=== PATIENT | male | born 1930 | race Caucasian/White ===

== ENCOUNTER 2016-11-13 11:03 | Inpatient (IN) | payer OTHER ==
[~2016-11-13] VITALS: Ht 175.3 cm; Wt 84.4 kg
[2016-11-13] MEDS ORDERED: ACETAMINOPHEN 500 MG TAB PO STA (11:45)
--- NOTE | 2016-11-13 11:52 | EMERGENCY ROOM VISIT NOTE ---
History Report prepared by Renu: Luna Herron Under the Supervision of: Dr. Marcos Monge M.D. First contact with patient: 11:38 Chief Complaint: HEAD PAIN Stated Complaint: PAIN GOING UP TO HEAD AND NECK History of Present Illness The patient is an 86 year old male who presents to the Emergency Room with complaints of persistent head pain for the past several days. He currently rates his discomfort as a 7/10 in severity. The patient states that he first noticed the pain radiating from the center of his back up through his head. He states that now he notices the pain more to the right side of his head. The patient states that he has noticed the pain radiating down his anterior neck, but denies any chest pain. He denies any diaphoresis, shortness of breath, nausea, recent fall, trauma. The patient states that he had recent dental work done, but denies any current jaw pain. He states that raising his head, and any movement of his head and neck worsens his discomfort. The patient states that he has taken Ibuprofen for his pain. The patient's states that the patient sleeps with his head on three pillows at night. Source of History: patient, spouse/significant other () Onset: past several days Position: head Symptom Intensity: 7/10 Timing: other (persistent) Modifying Factors (Worsening): movement (head and neck) Associated Symptoms: + neck pain, No SOB, No chest pain, No diaphoresis, No nausea Review of Systems See HPI for pertinent positives & negatives. A total of 10 systems reviewed and were otherwise negative. Past Medical & Surgical Medical Problems: (1) CAD (coronary artery disease) (2) CKD (chronic kidney disease) stage 3, GFR 30-59 ml/min (3) Dyslipidemia (4) HTN (hypertension) (5) Retinal hemorrhage Surgical Problems: (1) H/O heart artery stent No active medical problems stated. Family History Cancer Social History Smoking Status: Never Smoker Marital Status: Housing Status: lives with significant other Occupation Status: retired Current/Historical Medications Scheduled Allopurinol (Allopurinol), 100 MG PO BID Aspirin (Aspirin), 162 MG PO DAILY Coenzyme Q10 (Ubidecarenone) (Coq-10), 30 MG PO DAILY Fish Oil ([place]-3), 3 CAP PO BID Metoprolol Succ (Toprol Xl) (Toprol-Xl), 12.5 MG PO BID Misc Natural Products (Lutein Vision Blend), 1 CAP PO DAILY Simvastatin (Zocor), 20 MG PO HS Scheduled PRN Acetaminophen (Tylenol), 1,000 MG PO HS PRN for Pain Tramadol (Ultram), 50 MG PO HS PRN for Pain Allergies Coded Allergies: No Known Allergies (Verified , 06/25/12) Physical Exam Vital Signs Date Time Temp Pulse Resp B/P Pulse Ox O2 Delivery O2 Flow Rate FiO2 11/13/16 14:05 Room Air 11/13/16 13:00 63 20 138/96 94 Room Air 11/13/16 11:07 36.5 82 18 130/91 93 Room Air Physical Exam GENERAL: Patient is in no acute distress. HEENT: No acute trauma, normocephalic atraumatic, mucous membranes moist, no nasal congestion, no scleral icterus. NECK: Tender to posterior neck muscles, especially where they insert on scalp. No adenopathy or cellulitis. Movement worsens pain. Posterior c-spine has no jim stepoff. Carotid upstrokes are equal bilaterally. LUNGS: Clear to auscultation bilaterally, no wheeze, no rhonchi, breath sounds equal. HEART: Without murmurs gallops or rubs, regular rate and rhythm. ABDOMEN: Soft, nontender, bowel sounds positive, no hernias, no peritonitis. EXTREMITIES: No cyanosis or edema, full range of motion of all the joints without pain or difficulty, no signs for acute trauma. NEUROLOGIC: Oriented x 3, no acute motor or sensory deficits, no focal weakness. SKIN: No rash, no jaundice, no diaphoresis. Medical Decision & Procedures ER Provider Diagnostic Interpretation: X ray results and stated below per my interpretation and radiologist interpretation. Other radiology results and stated below per my review and radiologist interpretation: HEAD CT NONCONTRAST CT DOSE: HISTORY: headache TECHNIQUE: Multiaxial CT images of the head were performed without the use of intravenous contrast. Automated exposure control was utilized for this study. Comparison: None. Findings: The paranasal sinuses and mastoid air cells are clear. The calvarium and skull base are intact. There is no mass, hematoma, midline shift, acute infarct. White matter hypodensity is nonspecific but suggestive of microvascular ischemic change. The ventricles and sulci demonstrate mild age-related involutional changes. Impression: No acute intracranial abnormality. Atrophy and microvascular ischemic changes. Electronically signed by: Ulisses Coughlin M.D. 11/13/2016 1:06 PM Dictated Date/Time: 11/13/2016 1:[address] DOSE: 1278.82 mGy.cm HISTORY: neck pain TECHNIQUE: Multiaxial CT images of the cervical spine were performed and reformatted in the sagittal and coronal plane without the use of contrast. COMPARISON: None. FINDINGS: There is a 2.1 x 2.3 cm destructive mass centered within the left anterior base of the C2 vertebral body. This invades into the left vertebral canal. This does not extend to the posterior cortex. This results in a 8 pathologic fracture within the central aspect of the C2 inferior endplate which demonstrates mild depression. No associated retropulsion. The C1-C2 interval is intact. There is fusion of the C3-C4 vertebral bodies and facets. Moderate to severe degenerative disc disease within the mid to lower cervical spine. Moderate central canal narrowing at the C4-C5 level due to a broad-based posterior disc ossified complex. There is also a second destructive mass involving the left thyroid cartilage which measures 1.5 cm. However, the airway remains patent. IMPRESSION: 1. A 2.3 x 2.1 cm destructive mass within the left anterior base of the C2 vertebral body as described above. This results in a mild inferior endplate compression fracture at C2. No associated retropulsion. This is highly suspicious for a metastatic lesion. 2. There is a second 1.5 cm destructive mass centered within the left thyroid cartilage. No airway compromise. Electronically signed by: Ulisses Coughlin M.D. 11/13/2016 1:14 PM Dictated Date/Time: 11/13/2016 1:07 PM CHEST ONE VIEW PORTABLE HISTORY: Lytic lesion cervical spine. Possible cancer. COMPARISON: None. FINDINGS: No pneumothorax. Bibasilar interstitial thickening and a few bibasilar linear densities which favor subsegmental atelectasis or a the heart is top normal in size. There is a 3.1 cm focal masslike opacity within the left midlung zone. No pleural effusions. IMPRESSION: 1. A 3.1 cm masslike opacity within the left midlung zone. This is concerning for a malignancy. 2. Bibasilar linear densities favor scarring or atelectasis. Electronically signed by: Ulisses Coughlin M.D. 11/13/2016 1:56 PM Dictated Date/Time: 11/13/2016 1:54 PM Laboratory Results 11/13/16 13:30 11/13/16 13:30 Test 11/13/16 13:30 Red Blood Count 4.91 M/uL (4.7-6.1) Mean Corpuscular Volume 88.8 fL (80-100) Mean Corpuscular Hemoglobin 31.0 pg (25-34) Mean Corpuscular Hemoglobin Concent 34.9 g/dl (32-36) RDW Standard Deviation 45.8 fL (36.4-46.3) RDW Coefficient of Variation 14.1 % (11.5-14.5) Mean Platelet Volume 9.4 fL (7.4-10.4) Anion Gap 5.0 mmol/L (3-11) Est Creatinine Clear Calc Drug Dose 48.2 ml/min Estimated GFR () 70.1 Estimated GFR (Non- 60.5 BUN/Creatinine Ratio 10.9 (10-20) Calcium Level 8.8 mg/dl (8.5-10.1) Total Bilirubin 0.6 mg/dl (0.2-1) Aspartate Amino Transf (AST/SGOT) 24 U/L (15-37) Alanine Aminotransferase (ALT/SGPT) 20 U/L (12-78) Alkaline Phosphatase 112 U/L (45-117) Total Protein 7.7 gm/dl (6.4-8.2) Albumin 3.3 gm/dl (3.4-5.0) Globulin 4.4 gm/dl (2.5-4.0) Albumin/Globulin Ratio 0.7 (0.9-2) Laboratory results reviewed by me. Medications Administered Medications (Trade) Dose Ordered Sig/Letty Route Start Time Stop Time Status Last Admin Dose Admin Acetaminophen (Tylenol Tab) 1,000 mg NOW STAT PO 11/13/16 11:45 11/13/16 11:47 DC 11/13/16 11:55 1,000 MG ECG Indication: other (head pain) Rate (beats per minute): 68 Rhythm: normal sinus Findings: no acute ischemic change, no ectopy ED Course 1140: The patient was evaluated in room C8. A complete history and physical exam was performed. 1145: Ordered Tylenol Tab 1000 mg PO. 1328: I discussed the patient's case with Darshana Jaeger. He states that the patient should be placed in a stiff collar and should be evaluated under a hospitalist for further treatment. 1334: I reevaluated the patient at this time and he is resting comfortably. I discussed the CT results with him and I discussed the treatment plan. He verbalized complete understanding and agreement. He is going to be evaluated for further treatment and is going to have additional testing done in the emergency department. 1336: I discussed the patient's case with Lou Hauser PA-C. She is going to evaluate the patient for further treatment. Medical Decision The patient is an 86 year old male who presents to the ED with complaints of head pain. Differential diagnoses considered include arthritis, nerve impingement, intracranial bleeding, cervical spine fracture, carotid dissection , VA, cellulitis. There is no leukocytosis or concerning anemia. No significant electrolyte abnormality, kidney failure or hepatitis. Chest film shows a possible mass in the left lung, no pneumonia. Brain CT shows no acute bleed or mass effect. C- spine CT shows a pathologic C2 fracture. The patient was placed in a [place] J collar. He did receive oral Tylenol for pain. I talked to the patient and his family about the findings. His fracture of the C-spine is a pathologic fracture, likely from a metastatic lesion. He requires further care in the hospital. He needs a workup for malignancy. I did speak to the on-call spinal surgeon about the spinal fracture, the c-collar was all that was recommended for now. Consults Time Called: 1323 Consulting Physician: Darshana Jaeger Returned Call: 1328 I discussed the patient's case with Darshana Jaeger. He states that the patient should be placed in a stiff collar and should be evaluated under a hospitalist for further treatment. Additional Consults: Time Called: 1331 Consulted Physician: Lou Hauser PA-C Returned Call: 1334 Additional Comments: I discussed the patient's case with Lou Hauser PA-C. She is going to evaluate the patient for further treatment. Impression Primary Impression: C2 cervical fracture Additional Impression: Headache Scribe Attestation The scribe's documentation has been prepared under my direction and personally reviewed by me in its entirety. I confirm that the note above accurately reflects all work, treatment, procedures, and medical decision making performed by me. Departure Information Dispostion Being Evaluated By Hospitalist Referrals No Doctor, Assigned (PCP) Problem Qualifiers
[2016-11-13] MEDS ORDERED: LPR25 PO (12:18)
[2016-11-13] MEDS ORDERED: ALLO100T PO (12:18)
[2016-11-13] MEDS ORDERED: ASPI-461 PO (12:18)
[2016-11-13] MEDS ORDERED: FOCUS PO (12:18)
[2016-11-13] MEDS ORDERED: SIMV20TA2 PO (12:18)
[2016-11-13] MEDS ORDERED: OMEG10007 PO (12:18)
--- NOTE | 2016-11-13 13:08 | DIAGNOSTIC IMAGING REPORT ---
HEAD CT NONCONTRAST CT DOSE: HISTORY: headache TECHNIQUE: Multiaxial CT images of the head were performed without the use of intravenous contrast. Automated exposure control was utilized for this study. Comparison: None. Findings: The paranasal sinuses and mastoid air cells are clear. The calvarium and skull base are intact. There is no mass, hematoma, midline shift, acute infarct. White matter hypodensity is nonspecific but suggestive of microvascular ischemic change. The ventricles and sulci demonstrate mild age-related involutional changes. Impression: No acute intracranial abnormality. Atrophy and microvascular ischemic changes. Electronically signed by: Ulisses Coughlin M.D. 11/13/2016 1:06 PM Dictated Date/Time: 11/13/2016 1:03 PM
--- NOTE | 2016-11-13 13:15 | DIAGNOSTIC IMAGING REPORT ---
CERVICAL SPINE CT CT DOSE: 1278.82 mGy.cm HISTORY: neck pain TECHNIQUE: Multiaxial CT images of the cervical spine were performed and reformatted in the sagittal and coronal plane without the use of contrast. COMPARISON: None. FINDINGS: There is a 2.1 x 2.3 cm destructive mass centered within the left anterior base of the C2 vertebral body. This invades into the left vertebral canal. This does not extend to the posterior cortex. This results in a 8 pathologic fracture within the central aspect of the C2 inferior endplate which demonstrates mild depression. No associated retropulsion. The C1-C2 interval is intact. There is fusion of the C3-C4 vertebral bodies and facets. Moderate to severe degenerative disc disease within the mid to lower cervical spine. Moderate central canal narrowing at the C4-C5 level due to a broad-based posterior disc ossified complex. There is also a second destructive mass involving the left thyroid cartilage which measures 1.5 cm. However, the airway remains patent. IMPRESSION: 1. A 2.3 x 2.1 cm destructive mass within the left anterior base of the C2 vertebral body as described above. This results in a mild inferior endplate compression fracture at C2. No associated retropulsion. This is highly suspicious for a metastatic lesion. 2. There is a second 1.5 cm destructive mass centered within the left thyroid cartilage. No airway compromise. Electronically signed by: Ulisses Coughlin M.D. 11/13/2016 1:14 PM Dictated Date/Time: 11/13/2016 1:07 PM
[2016-11-13 13:42] LABS: HEMATOCRIT 43.6 % (42-52); MEAN CELL VOLUME 88.8 fL (80-100); MEAN CORPUSCULAR HGB CONC 34.9 g/dl (32-36); MEAN PLATELET VOLUME 9.4 fL (7.4-10.4); PLATELET COUNT 185 K/uL (130-400); RED BLOOD COUNT 4.91 M/uL (4.7-6.1); WHITE BLOOD COUNT 8.95 K/uL (4.8-10.8)
[2016-11-13 13:57] LABS: BUN/CREATININE RATIO 10.9 (10-20); CALCIUM 8.8 mg/dl (8.5-10.1); CREATININE 1.1 mg/dl (0.60-1.40); POTASSIUM 4.4 mmol/L (3.5-5.1)
--- NOTE | 2016-11-13 13:58 | DIAGNOSTIC IMAGING REPORT ---
CHEST ONE VIEW PORTABLE HISTORY: Lytic lesion cervical spine. Possible cancer. COMPARISON: None. FINDINGS: No pneumothorax. Bibasilar interstitial thickening and a few bibasilar linear densities which favor subsegmental atelectasis or a the heart is top normal in size. There is a 3.1 cm focal masslike opacity within the left midlung zone. No pleural effusions. IMPRESSION: 1. A 3.1 cm masslike opacity within the left midlung zone. This is concerning for a malignancy. 2. Bibasilar linear densities favor scarring or atelectasis. Electronically signed by: Ulisses Coughlin M.D. 11/13/2016 1:56 PM Dictated Date/Time: 11/13/2016 1:54 PM
[2016-11-13 14:00] LABS: ALB/GLOB RATIO 0.7 (0.9-2)
[2016-11-13 14:05] VITALS: Ht 175.3 cm; Wt 84.4 kg
[2016-11-13] MEDS ORDERED: ONDANSETRON INJ 2 MG/ML 2 ML VIAL IV PRN (14:30)
[2016-11-13] MEDS ORDERED: ACETAMINOPHEN 325 MG TAB PO PRN (14:30)
[2016-11-13] MEDS ORDERED: TYLOTC500 PO (14:34)
[2016-11-13] MEDS ORDERED: COEN30CA8 PO (14:34)
[2016-11-13] MEDS ORDERED: TRAM-10 PO (14:34)
[2016-11-13] MEDS ORDERED: ALL100 PO (14:34)
[2016-11-13] MEDS ORDERED: METO25TA3 PO (14:34)
[2016-11-13] MEDS ORDERED: MISCCAP69 PO (14:34)
[2016-11-13] MEDS ORDERED: OPTIRAY 320 IV PRN (14:45)
[2016-11-13] MEDS ORDERED: TRAMADOL HCL 50 MG TAB PO PRN (14:45)
[2016-11-13 14:56] LABS: INR 1.1 (0.9-1.1); PARTIAL THROMBOPLASTIN RATIO 1.2; PROTHROMBIN TIME (PATIENT) 11.8 SECONDS (9.0-12.0)
[2016-11-13] MEDS ORDERED: OXYCODONE/ACETAMINOPHEN 5-325 TAB PO PRN (15:00)
[2016-11-13 15:50] VITALS: BP 154/84; PULSE 69; TEMP 36.8; O2SAT 95
--- NOTE | 2016-11-13 16:09 | History and Physical ---
History & Physical Date & Time of Service: Nov 13, 2016 at 14:37 Chief Complaint: Pain Going Up To Head And Neck Primary Care Physician: Frank Avila M.D. History of Present Illness Source: patient This is an 87 y/o male with PMHx of CAD s/p stent, CKD stage 3 and other problems as outlined below who presents to the ED c/o neck pain for 1-2 weeks. Pt reports that he has been experiencing pain in the posterior aspect of his neck that radiates into his head. He rates the pain at a 2/10 when laying still but the pain increases to a 10/10 with any movement. Pt has been taking Tylenol and Tramadol at home for his sxs with some relief. This morning he noticed the pain was radiating down the anterior aspect of his neck but not into his chest. Patient denies recent history of trauma or fall. He denies back or arm pain. Pt also mentions that he feels like there is a "blockage" in his rectum as he has to strain to have a BM. mentions patient has not had a good appetite. Pt was a long-time tobacco user. He has never had a colonoscopy. Pt denies recent weight loss or night sweats. Pt denies fever/chills, diaphoresis, chest pain, SOB, cough, hemoptysis, abd pain, N/V, hematochezia, melena, bladder issues, LE edema, calf pain, lightheadedness/dizziness. In the ED, vitals are stable. Labs are unremarkable. C spine CT + a mass within C2 with subsequent C2 fx. There is a 2nd mass within the L thyroid cartilage. CT head is negative. Pt is stable and will be admitted for further evaluation and treatment. 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 Surgical Problems: (1) H/O heart artery stent Permanent Comment: 2001 Status: Resolved Family History Cancer Social History Smoking Status: Former Smoker (smoked a pipe for 60 years; quit 2001) Alcohol Use: none Drug Use: none Marital Status: Housing status: lives with family Occupational Status: retired Multi-Drug Resistant Organisms History of MDRO: No Allergies Coded Allergies: No Known Allergies (Verified , 06/25/12) Home Medications Scheduled Allopurinol (Allopurinol), 100 MG PO BID Aspirin (Aspirin), 162 MG PO DAILY Coenzyme Q10 (Ubidecarenone) (Coq-10), 30 MG PO DAILY Fish Oil ([place]-3), 3 CAP PO BID Metoprolol Succ (Toprol Xl) (Toprol-Xl), 12.5 MG PO BID Misc Natural Products (Lutein Vision Blend), 1 CAP PO DAILY Simvastatin (Zocor), 20 MG PO HS Scheduled PRN Acetaminophen (Tylenol), 1,000 MG PO HS PRN for Pain Tramadol (Ultram), 50 MG PO HS PRN for Pain Review of Systems Constitutional: No chills, No fatigue, No fever, No sweats, No weakness Eyes: No worsening of vision (blind in R eye) ENT: No hearing loss Respiratory: No cough, No hemoptysis, No shortness of breath Cardiovascular: No chest pain, No claudication, No edema, No palpitations Abdomen: + constipation, No GI bleeding, No diarrhea, No nausea, No pain, No vomiting Musculoskeletal: + joint pain (neck pain), No calf pain, No swelling Genitourinary - Male: No dysuria Neurologic: No weakness Psychiatric: No depression symptoms Endocrine: No fatigue Hematologic / Lymphatic: No abnormal bleeding/bruising Integumentary: No new/changing skin lesions Physical Exam Vital Signs Date Time Temp Pulse Resp B/P Pulse Ox O2 Delivery O2 Flow Rate FiO2 11/13/16 13:00 63 20 138/96 94 Room Air 11/13/16 11:07 36.5 82 18 130/91 93 Room Air General Appearance: WD/WN, no apparent distress, + pertinent finding (Pt is laying in bed with , daughter and granddaughter at bedside) Head: normocephalic, atraumatic Eyes: normal inspection ENT: hearing grossly normal Neck: supple, + pertinent finding (C-collar in place) Respiratory/Chest: chest non-tender, lungs clear (anterior auscultation), normal breath sounds, no respiratory distress Cardiovascular: regular rate, rhythm, no edema, no murmur Abdomen/GI: normal bowel sounds, non tender, soft Back: normal inspection Extremities/Musculoskelatal: normal inspection, no calf tenderness, no pedal edema Neurologic/Psych: drafter electromechanical II-XII nml as tested, no motor/sensory deficits, alert, normal mood/affect, oriented x 3 Skin: normal color, warm/dry Diagnostics Laboratory Results Results Past 24 Hours Test 11/13/16 13:30 Range/Units White Blood Count 8.95 4.8-10.8 K/uL Red Blood Count 4.91 4.7-6.1 M/uL Hemoglobin 15.2 14.0-18.0 g/dL Hematocrit 43.6 42-52 % Mean Corpuscular Volume 88.8 80-100 fL Mean Corpuscular Hemoglobin 31.0 25-34 pg Mean Corpuscular Hemoglobin Concent 34.9 32-36 g/dl RDW Standard Deviation 45.8 36.4-46.3 fL RDW Coefficient of Variation 14.1 11.5-14.5 % Platelet Count 185 130-400 K/uL Mean Platelet Volume 9.4 7.4-10.4 fL Sodium Level 138 136-145 mmol/L Potassium Level 4.4 3.5-5.1 mmol/L Chloride Level 102 98-107 mmol/L Carbon Dioxide Level 31 21-32 mmol/L Anion Gap 5.0 3-11 mmol/L Blood Urea Nitrogen 12 7-18 mg/dl Creatinine 1.10 0.60-1.40 mg/dl Est Creatinine Clear Calc Drug Dose 48.2 ml/min Estimated GFR () 70.1 Estimated GFR (Non- 60.5 BUN/Creatinine Ratio 10.9 10-20 Random Glucose 95 70-99 mg/dl Calcium Level 8.8 8.5-10.1 mg/dl Total Bilirubin 0.6 0.2-1 mg/dl Aspartate Amino Transf (AST/SGOT) 24 15-37 U/L Alanine Aminotransferase (ALT/SGPT) 20 12-78 U/L Alkaline Phosphatase 112 45-117 U/L Total Protein 7.7 6.4-8.2 gm/dl Albumin 3.3 3.4-5.0 gm/dl Globulin 4.4 2.5-4.0 gm/dl Albumin/Globulin Ratio 0.7 0.9-[address] CERV SPINE IMPRESSION: 1. A 2.3 x 2.1 cm destructive mass within the left anterior base of the C2 vertebral body as described above. This results in a mild inferior endplate compression fracture at C2. No associated retropulsion. This is highly suspicious for a metastatic lesion. 2. There is a second 1.5 cm destructive mass centered within the left thyroid cartilage. No airway compromise. CXR IMPRESSION: 1. A 3.1 cm masslike opacity within the left midlung zone. This is concerning for a malignancy. 2. Bibasilar linear densities favor scarring or atelectasis. CT HEAD IMPRESSION: No acute intracranial abnormality. Atrophy and microvascular ischemic changes EKG EKG: NSR att 68 bpm with LAD and no acute ischemic changes; no change when compared to the EKG from 08/13/2002 Impression Assessment and Plan C2 BONE LESION HIGHLY SUSPICIOUS FOR METS WITH RESULTING C2 COMPRESSION FX pt presented with neck pain rad to the head with assoc with loss of appetite; no recent trauma or fall -admit to med/surg -CT cervical spine Impression: A 2.3 x 2.1 cm destructive mass within the left anterior base of the C2 vertebral body. This results in a mild inferior endplate compression fracture at C2. This is highly suspicious for a metastatic lesion. 2. There is a second 1.5 cm destructive mass centered within the left thyroid cartilage. No airway compromise. -CXR Impression: A 3.1 cm masslike opacity within the left midlung zone. This is concerning for a malignancy. -CT head is negative -Lidocaine patch and Percocet PRN pain -consult ortho, Dr. Silva-pending input -monitor CKD STAGE 3 -creatinine around baseline at 1.1 -continue to monitor closely and avoid nephrotoxic agents when able CORONARY ARTERY DISEASE -EKG no acute ischemic change -cont ASA, BB and statin -pt currently denies anginal sxs HTN -BP stable -cont metoprolol -monitor DYSLIPIDEMIA -cont statin DVT PROPHYLAXIS -subq Lovenox CODE STATUS -FULL CODE per discussion with patient upon admission DISPO Pt seen in collaboration with Dr. Castilol. Please see her addendum for further details. Thanks! I have seen, examined and discussed this patient with Concepcion Morales and I agree with the above note. Patient presented with neck pain, found to have a c-spine lesion and thyroid lesion concerning for metastases. CXR with lung mass. Vitals stable. PE: General- awake; alert; NAD Eyes- EOMI; no scleral icterus Neck- cervical collar in place Lungs- CTA bilaterally anteriorly Heart- RRR; no m/r/g Abdomen- soft; NTND; nBS Extremities- no c/c/e; no deformity Neuro- no focal deficits Skin- no appreciable rash or bruise Labs, imaging and EKG reviewed. C-spine lesion- Concerning for metastases. Patient in cervical collar. Ortho consulted. 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 Gentle IVF's to avoid contrast induced nephropathy. Continue patient's home medication regimen as outlined above. Advanced Directives Existing Living Will: No Existing Power of Ladler: Yes VTE Prophylaxis VTE Risk Assessment Done? Y/N: Yes Risk Level: Moderate
[2016-11-13] MEDS ORDERED: ENOXAPARIN 40 MG/0.4 ML SYR SQ SCH (18:00)
[2016-11-13] MEDS: SODIUM CHLORIDE 0.9% 1000ML 1,000 ML IV SCH (19:04)
--- NOTE | 2016-11-13 19:31 | DIAGNOSTIC IMAGING REPORT ---
CT OF THE CHEST WITH IV CONTRAST CLINICAL HISTORY: Suspicious left lung mass. COMPARISON STUDY: Chest radiograph November 13, 2016. TECHNIQUE: Following IV administration of 92 mL of Optiray-320, helical axial images of the chest were obtained. Images were viewed in the axial, sagittal and coronal planes. IV contrast was administered without complication. CT DOSE: 935.69 mGy.cm FINDINGS: Note is made of an irregular 2.8 x 2.4 cm lingular nodule. There are a few additional lingular nodules that measure up to 7 mm. A few right lower lobe nodules measure up to 6 mm. The heart is mildly enlarged. There is no pericardial effusion. There are multiple enlarged left hilar lymph nodes with a conglomerate left infrahilar mass that measures 4.5 x 2.8 cm. There is resultant severe narrowing of the left upper lobe bronchus and occlusion of the lingular bronchus. Multifocal groundglass opacity throughout the lungs are noted. There is moderate emphysema. There is no pneumothorax or pleural effusion. Note is made of suspected small lytic lesions within multiple ribs, including a 1.7 cm lesion within the lateral right fifth rib. The abdomen and pelvis will be reported separately. Note is made of a 2.9 cm lateral segment hepatic lesion and a 1.5 cm segment 8 hepatic lesion. IMPRESSION: 1. 2.8 x 2.4 cm irregular lingular nodule highly suggestive of bronchogenic adenocarcinoma. 2. Multiple pathologically enlarged left hilar lymph nodes suggestive of ruby spread of disease. Associated occlusion of the lingular bronchus, severe narrowing of the left upper lobe bronchus and narrowing of several pulmonary arteries. 3. Two hepatic lesions highly suggestive of metastatic disease. 4. Suspected scattered lytic lesions within the ribs which suggest metastatic disease. 5. Multifocal groundglass opacities within the right lung which favor an infectious process. Electronically signed by: Espinoza Posey M.D. 11/13/2016 7:29 PM Dictated Date/Time: 11/13/2016 5:23 PM
--- NOTE | 2016-11-13 19:34 | DIAGNOSTIC IMAGING REPORT ---
CT OF THE ABDOMEN AND PELVIS WITH CONTRAST CLINICAL HISTORY: Evaluate for malignancy. COMPARISON STUDY: None. TECHNIQUE: Following IV administration of 92 mL of Optiray-320, axial images of the abdomen and pelvis were obtained from the lung bases to the proximal femurs. Images were reviewed in the axial, sagittal, and coronal planes. IV contrast was administered without complication. Oral contrast was administered. FINDINGS: The chest will be reported separately. Note is made of an irregular 2.8 cm nodule within the lingula as well as left hilar lymphadenopathy. Note is made of a 3.1 cm hypodense lateral segment hepatic mass as well as a 1.8 cm segment 8 hepatic lesion. The spleen, adrenal glands, left kidney and pancreas are unremarkable. Several right renal cysts are noted. There is no biliary or pancreatic ductal dilatation. There are small gallstones within the gallbladder. The abdominal aorta is ectatic. There is left colon diverticulosis without evidence for acute diverticulitis. The appendix is normal. There is no bowel obstruction. There is no hydronephrosis. No enlarged lymph nodes are present. No suspicious osseous lesions are identified by CT. IMPRESSION: 1. Two hepatic lesions highly suggestive of metastases. 2. 2.8 cm lingular nodule highly suggestive of bronchogenic carcinoma. Left hilar lymphadenopathy suggestive of ruby spread of disease. Electronically signed by: Espinoza Posey M.D. 11/13/2016 7:33 PM Dictated Date/Time: 11/13/2016 6:28 PM
[2016-11-13] MEDS: ALLOPURINOL 100 MG TAB PO SCH (20:46)
[2016-11-13] MEDS: METOPROLOL SUCC 25MG EXT REL TAB PO SCH (20:46)
[2016-11-13] MEDS: OMEGA-3 (PURIFIED FISH OIL) 1 GM CAP PO SCH (20:47)
[2016-11-13] MEDS ORDERED: SIMVASTATIN 20 MG TAB PO SCH (21:00)
[2016-11-13 23:01] VITALS: BP 137/85; PULSE 83; TEMP 36.6; O2SAT 93
[2016-11-14 06:44] LABS: HEMATOCRIT 41.9 % (42-52); MEAN CELL VOLUME 87.5 fL (80-100); MEAN CORPUSCULAR HEMOGLOBIN 30.3 pg (25-34); MEAN CORPUSCULAR HGB CONC 34.6 g/dl (32-36); MEAN PLATELET VOLUME 9.6 fL (7.4-10.4); PLATELET COUNT 194 K/uL (130-400); RED BLOOD COUNT 4.79 M/uL (4.7-6.1); WHITE BLOOD COUNT 8.55 K/uL (4.8-10.8)
[2016-11-14 07:21] LABS: BUN/CREATININE RATIO 10.9 (10-20); CALCIUM 9.1 mg/dl (8.5-10.1); CREATININE 0.92 mg/dl (0.60-1.40); POTASSIUM 3.8 mmol/L (3.5-5.1)
[2016-11-14] MEDS: SODIUM CHLORIDE 0.9% 1000ML 1,000 ML IV SCH (07:35)
[2016-11-14 08:00] VITALS: BP 134/89; PULSE 87; TEMP 36.7; O2SAT 92
[2016-11-14 08:28] VITALS: O2SAT 94
[2016-11-14] MEDS: OMEGA-3 (PURIFIED FISH OIL) 1 GM CAP PO SCH (08:40)
[2016-11-14] MEDS: METOPROLOL SUCC 25MG EXT REL TAB PO SCH (08:40)
[2016-11-14] MEDS: ALLOPURINOL 100 MG TAB PO SCH (08:41)
[2016-11-14] MEDS ORDERED: ASPIRIN 81 MG ECTAB PO SCH (09:00)
[2016-11-14] MEDS ORDERED: LIDODERM (LIDOCAINE) PATCH 5% TD SCH ×2 (09:00→18:30)
[2016-11-14] MEDS ORDERED: COENZYME Q10 30 MG PO SCH (09:00)
[2016-11-14] MEDS ORDERED: NATURAL PRODUCTS PO SCH (09:00)
[2016-11-14 15:09] VITALS: BP 142/87; PULSE 92; TEMP 36.4; O2SAT 93
--- NOTE | 2016-11-14 15:18 | ORTHOPEDIC CONSULTATION ---
DATE OF CONSULTATION: 11/14/2016 CHIEF COMPLAINT: Neck pain and headaches. HISTORY OF PRESENT ILLNESS: A very pleasant 86-year-old male that has had headache and neck pain for about 1 week. Denies any precipitating trauma, fall or event. Is described involving the right paravertebral musculature extending into the posterior occipital region. He denies any balance disturbance. Denies upper extremity numbness or tingling or motor deficits or weakness. He denies any difficulty with swallowing. PHYSICAL EXAMINATION: He does exhibit excellent strength to testing of upper extremities. He is able to stand without difficulty. He has reasonable range of motion of the cervical spine, though did not ask him for extremes range of motion. He has no pain to palpation paravertebral musculature. CAT scan of the cervical spine does demonstrate C2 lesion appearing in the left side and migrating anterior. It does appear to be metastatic in nature. There is significant cortical disruption. Does not appear to be involvement of the canal. 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 I would certainly be suspicious of this being unstable in nature and at risk for further collapse. PLAN: The patient is with his , at this time, would not like to pursue anything aggressive regarding his spinal disease or welcoming a consultation with radiation oncology, which I have encouraged him to do. I requested he wear his Resighini J collar at all times. He may take it off to eat and to shower. Stated that if he were to consider surgical intervention for this lesion, it would require transfer to a tertiary care center. At this time, follow up in the next few weeks with plain x-rays would be warranted to ensure he is maintaining alignment. All questions were addressed. It certainly meant that he may have further questions in the future at which point he is to let us know.
[2016-11-14] MEDS ORDERED: TRAM-10 PO (17:54)
[2016-11-14] MEDS ORDERED: TYLOTC500 PO (17:54)
[2016-11-14] MEDS ORDERED: LDDP5 TD (17:54)
--- NOTE | 2016-11-14 17:56 | Discharge Instructions ---
Discharge Instructions Admission Reason for Admission: C2 Cervical Fracture Discharge Discharge Diagnosis / Problem: Likely metastatic cancer Discharge Goals Goal(s): Diagnostic testing Activity Recommendations Activity Limitations: resume your previous activity . Instructions / Follow-Up Instructions / Follow-Up Please wear the Bulloch J collar at all times. You may take it off to eat and to shower. You will be contacted with follow up appointments with Family Medicine Dr. Cisse and Orthopedic spine surgery Dr. Silva. Current Hospital Diet Patient's current hospital diet: Regular Diet Discharge Diet Recommended Diet: Regular Diet Pending Studies Studies pending at discharge: no Medical Emergencies . Who to Call and When: Medical Emergencies: If at any time you feel your situation is an emergency, please call 911 immediately. . Non-Emergent Contact Non-Emergency issues call your: Primary Care Provider . . "Provider Documentation" section prepared by Rozina Navarro. VTE Core Measure Inpt VTE Proph given/why not?: Enoxaparin (Lovenox)SQ
[2016-11-14 18:30] VITALS: BP 142/87; PULSE 92; TEMP 36.4; O2SAT 93
--- NOTE | 2016-11-14 18:30 | Radiation Oncology Consult ---
Radiation Oncology Consult Date / Reason Nov 14, 2016. Physicians Radiation Oncologist: Dr. Ajit León Diagnosis (1) Pulmonary mass Stage: IV History of Present Illness I am seeing Mr. Rodriguez in consultation at the request of Dr. Castillo. The patient was initially seen at bedside and then also in our department with multiple family members. ECOG PS: 2 Mr. Rodriguez is a 86-year-old gentleman with a remote smoking history who recently presented with upper cervical neck pain and some weight loss. The patient presented to the emergency room on 11/13/[address] of the head which was negative. The patient did have a CT of the cervical spine which did reveal: "1. A 2.3 x 2.1 cm destructive mass within the left anterior base of the C2 vertebral body as described above. This results in a mild inferior endplate compression fracture at C2. No associated retropulsion. This is highly suspicious for a metastatic lesion. 2. There is a second 1.5 cm destructive mass centered within the left thyroid cartilage. No airway compromise." The patient subsequently did have a CT of the chest/abdomen/pelvis which revealed: "IMPRESSION: 1. 2.8 x 2.4 cm irregular lingular nodule highly suggestive of bronchogenic adenocarcinoma. 2. Multiple pathologically enlarged left hilar lymph nodes suggestive of ruby spread of disease. Associated occlusion of the lingular bronchus, severe narrowing of the left upper lobe bronchus and narrowing of several pulmonary arteries. 3. Two hepatic lesions highly suggestive of metastatic disease. 4. Suspected scattered lytic lesions within the ribs which suggest metastatic disease. 5. Multifocal groundglass opacities within the right lung which favor an infectious process" and "1. Two hepatic lesions suggestive of metastasis." The patient was seen by Dr. Silva from orthopedic surgery who did offer to potentially pursue a biopsy over the patient initially refused. We were asked to evaluate the patient for consideration of palliative radiation therapy to the cervical spine. Currently, the patient states that he does have significant pain in his cervical spine. He denies any focal neurologic deficits or numbness/tingling. He denies any hemoptysis, fevers, chills or night sweats. He does have some weight loss measures at least 10-15 pounds loss over the last several weeks. His appetite is poor as well. Social History Smoking Status: Former Smoker (smoked a pipe for 60 years; quit 2001) Hx Tobacco Use In Past Year?: No Quit Date: Nov 13, 2001 Do You Dip or Chew Tobacco: No Hx Alcohol Use: No Hx Substance Use : No Allergies Coded Allergies: No Known Allergies (Verified , 06/25/12) Home Medications Scheduled Allopurinol (Allopurinol), 100 MG PO BID Aspirin (Aspirin), 162 MG PO DAILY Coenzyme Q10 (Ubidecarenone) (Coq-10), 30 MG PO DAILY Fish Oil ([place]-3), 3 CAP PO BID Lidocaine (Lidocaine), 1 PATCH TD QAM Metoprolol Succ (Toprol Xl) (Toprol-Xl), 12.5 MG PO BID Misc Natural Products (Lutein Vision Blend), 1 CAP PO DAILY Simvastatin (Zocor), 20 MG PO HS Scheduled PRN Acetaminophen (Tylenol), 1,000 MG PO Q8 PRN for Pain Tramadol (Ultram), 50 MG PO Q6 PRN for Pain Review of Systems Ear/Hearing: Ear Side: Bilateral Hearing Ability: Hard of Hearing Hearing Aid: None Edema: Present?: No Pain Management Side: Mid Patient Preferred Pain Scale: 0 - 10 Initial Pain Intensity: 4.0 Physical Exam Height: 5 (Feet) 9.00 (Inches) 175.3 (Centimeters) 1.7526 (Meters) Weight: 186 (Pounds) 1.1 (Ounces) 84.400 (Kilograms) 26358.000 (Grams) Date Time Temp Pulse Resp B/P Pulse Ox O2 Delivery O2 Flow Rate FiO2 11/14/16 15:09 36.4 92 18 142/87 93 Room Air 11/14/16 08:28 94 Room Air 11/14/16 08:00 36.7 87 18 134/89 92 Room Air 11/14/16 07:30 Room Air 11/13/16 23:10 Room Air 11/13/16 23:01 36.6 83 18 137/85 93 Room Air General Appearance: WD/WN, no apparent distress Head: normocephalic, atraumatic Eyes: normal inspection, PERRL ENT: normal ENT inspection Neck: supple, no adenopathy Respiratory/Chest: chest non-tender, lungs clear, normal breath sounds, no respiratory distress Cardiovascular: regular rate, rhythm, no edema, no gallop, no JVD Abdomen/GI: normal bowel sounds, non tender, no organomegaly, no pulsatile mass Neurologic/Psych: auditing specialist II-XII nml as tested, alert, normal mood/affect, normal reflexes, oriented x 3 Skin: normal color, warm/dry, no rash Imaging Imaging studies: were reviewed Imaging Comments HEAD CT NONCONTRAST - 11/13/2016 CT DOSE: HISTORY: headache TECHNIQUE: Multiaxial CT images of the head were performed without the use of intravenous contrast. Automated exposure control was utilized for this study. Comparison: None. Findings: The paranasal sinuses and mastoid air cells are clear. The calvarium and skull base are intact. There is no mass, hematoma, midline shift, acute infarct. White matter hypodensity is nonspecific but suggestive of microvascular ischemic change. The ventricles and sulci demonstrate mild age-related involutional changes. Impression: No acute intracranial abnormality. Atrophy and microvascular ischemic changes. CERVICAL SPINE CT - 11/13/2016 CT DOSE: 1278.82 mGy.cm HISTORY: neck pain TECHNIQUE: Multiaxial CT images of the cervical spine were performed and reformatted in the sagittal and coronal plane without the use of contrast. COMPARISON: None. FINDINGS: There is a 2.1 x 2.3 cm destructive mass centered within the left anterior base of the C2 vertebral body. This invades into the left vertebral canal. This does not extend to the posterior cortex. This results in a 8 pathologic fracture within the central aspect of the C2 inferior endplate which demonstrates mild depression. No associated retropulsion. The C1-C2 interval is intact. There is fusion of the C3-C4 vertebral bodies and facets. Moderate to severe degenerative disc disease within the mid to lower cervical spine. Moderate central canal narrowing at the C4-C5 level due to a broad-based posterior disc ossified complex. There is also a second destructive mass involving the left thyroid cartilage which measures 1.5 cm. However, the airway remains patent. IMPRESSION: 1. A 2.3 x 2.1 cm destructive mass within the left anterior base of the C2 vertebral body as described above. This results in a mild inferior endplate compression fracture at C2. No associated retropulsion. This is highly suspicious for a metastatic lesion. 2. There is a second 1.5 cm destructive mass centered within the left thyroid cartilage. No airway compromise. CT OF THE CHEST WITH IV CONTRAST - 11/13/2016 CLINICAL HISTORY: Suspicious left lung mass. COMPARISON STUDY: Chest radiograph November 13, 2016. TECHNIQUE: Following IV administration of 92 mL of Optiray-320, helical axial images of the chest were obtained. Images were viewed in the axial, sagittal and coronal planes. IV contrast was administered without complication. CT DOSE: 935.69 mGy.cm FINDINGS: Note is made of an irregular 2.8 x 2.4 cm lingular nodule. There are a few additional lingular nodules that measure up to 7 mm. A few right lower lobe nodules measure up to 6 mm. The heart is mildly enlarged. There is no pericardial effusion. There are multiple enlarged left hilar lymph nodes with a conglomerate left infrahilar mass that measures 4.5 x 2.8 cm. There is resultant severe narrowing of the left upper lobe bronchus and occlusion of the lingular bronchus. Multifocal groundglass opacity throughout the lungs are noted. There is moderate emphysema. There is no pneumothorax or pleural effusion. Note is made of suspected small lytic lesions within multiple ribs, including a 1.7 cm lesion within the lateral right fifth rib. The abdomen and pelvis will be reported separately. Note is made of a 2.9 cm lateral segment hepatic lesion and a 1.5 cm segment 8 hepatic lesion. IMPRESSION: 1. 2.8 x 2.4 cm irregular lingular nodule highly suggestive of bronchogenic adenocarcinoma. 2. Multiple pathologically enlarged left hilar lymph nodes suggestive of ruby spread of disease. Associated occlusion of the lingular bronchus, severe narrowing of the left upper lobe bronchus and narrowing of several pulmonary arteries. 3. Two hepatic lesions highly suggestive of metastatic disease. 4. Suspected scattered lytic lesions within the ribs which suggest metastatic disease. 5. Multifocal groundglass opacities within the right lung which favor an infectious process. CT OF THE ABDOMEN AND PELVIS WITH CONTRAST - 11/13/2016 CLINICAL HISTORY: Evaluate for malignancy. COMPARISON STUDY: None. TECHNIQUE: Following IV administration of 92 mL of Optiray-320, axial images of the abdomen and pelvis were obtained from the lung bases to the proximal femurs. Images were reviewed in the axial, sagittal, and coronal planes. IV contrast was administered without complication. Oral contrast was administered. FINDINGS: The chest will be reported separately. Note is made of an irregular 2.8 cm nodule within the lingula as well as left hilar lymphadenopathy. Note is made of a 3.1 cm hypodense lateral segment hepatic mass as well as a 1.8 cm segment 8 hepatic lesion. The spleen, adrenal glands, left kidney and pancreas are unremarkable. Several right renal cysts are noted. There is no biliary or pancreatic ductal dilatation. There are small gallstones within the gallbladder. The abdominal aorta is ectatic. There is left colon diverticulosis without evidence for acute diverticulitis. The appendix is normal. There is no bowel obstruction. There is no hydronephrosis. No enlarged lymph nodes are present. No suspicious osseous lesions are identified by CT. IMPRESSION: 1. Two hepatic lesions highly suggestive of metastases. 2. 2.8 cm lingular nodule highly suggestive of bronchogenic carcinoma. Left hilar lymphadenopathy suggestive of ruby spread of disease. Assessment & Recommendations Mr. 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 The patient has not had a pathologic tissue diagnosis at this point. Initially, the patient did refuse considering any aggressive treatment including a biopsy to confirm the evidence of cancer; however, the patient is now willing to consider more aggressive treatment options. We have recommended pursuing a pathologic tissue diagnosis to confirm the type of cancer the patient has; after reviewing the studies, the patient may be amenable to biopsy through bronchoscopy and should be referred to either pulmonology or thoracic surgery. Additionally, given the high likelihood of metastatic cancer, we are recommending consideration for palliative external beam radiation therapy to the cervical spine to improve pain symptoms as well as progression of disease. After the patient has obtained a pathologic tissue diagnosis, I have recommended a discussion with medical oncology to discuss potential treatment options. The family states the agreeable to considering a pathologic diagnosis as well as radiation therapy; the patient also states that he would be willing to at least talk to medical oncology in the near future. Today, we will bring the patient down for CT simulation for treatment planning and then initiated radiation therapy after the patient has obtained a tissue diagnosis. We have explained the indications, alternatives, benefits, risks and side effects of radiation therapy. We have explained the most common side effects including but are not limited to skin erythema, skin break down, hair loss, fibrosis, adhesion development, radiation pneumonitis, rib and bone fracture, heart failure and heart disease, esophagitis, bowel obstruction, urinary symptoms, thyroid disorders, mucositis, nauesea, vomiting, diarrhea, anemia, fatigue and development of secondary malignancy. We also discussed that male patients may have issues with erections (potency) and infertility issues depending on their age and area of treatment. We have explained the CT simulation process and treatment planning. We explained what to expect before, during and after treatment on a regular basis. The patient understands and would be willing to consent to treatment. The patient and family had multiple questions which were answered to their full satisfaction. Thank you for allowing us to participate in the care of this patient. This chart was completed in part utilizing [employer] Speech Voice Recognition software. Attempts were made to minimize the grammatical errors, random word insertions, pronoun errors and incomplete sentences. Any formal questions or concerns about the content, text or information contained within the body of this dictation should be directly addressed to the provider for clarification. Ajit León MD Department of Radiation Oncology [facility] Total Time In Consultation I spent 30 minutes examining and counseling the patient. I spent 15 minutes completing this note. Copy To Mian Cisse M.D. (MEDICAL); Frank Avila M.D.
--- NOTE | 2016-11-14 19:40 | Discharge Summary ---
Discharge Summary Date of Service Nov 14, 2016. Discharge Summary Admission Date: Nov 13, 2016 at 14:17 Discharge Date: Nov 14, 2016 Discharge Disposition: Home Principal Diagnosis: Presumed stage 4 lung cancer Procedures: CT head No acute intracranial abnormality. Atrophy and microvascular ischemic changes. CT c-spine 1. A 2.3 x 2.1 cm destructive mass within the left anterior base of the C2 vertebral body as described above. This results in a mild inferior endplate compression fracture at C2. No associated retropulsion. This is highly suspicious for a metastatic lesion. 2. There is a second 1.5 cm destructive mass centered within the left thyroid cartilage. No airway compromise. CT chest 1. 2.8 x 2.4 cm irregular lingular nodule highly suggestive of bronchogenic adenocarcinoma. 2. Multiple pathologically enlarged left hilar lymph nodes suggestive of ruby spread of disease. Associated occlusion of the lingular bronchus, severe narrowing of the left upper lobe bronchus and narrowing of several pulmonary arteries. 3. Two hepatic lesions highly suggestive of metastatic disease. 4. Suspected scattered lytic lesions within the ribs which suggest metastatic disease. 5. Multifocal groundglass opacities within the right lung which favor an infectious process. CT a/p 1. Two hepatic lesions highly suggestive of metastases. 2. 2.8 cm lingular nodule highly suggestive of bronchogenic carcinoma. Left hilar lymphadenopathy suggestive of ruby spread of disease. Consultations: Orthopedic Radiation oncology Medication Reconciliation New Medications: Lidocaine (Lidocaine) 1 Patch Tdsy 1 PATCH TD QAM for 30 Days, #30 PATCH Changed Medications: Acetaminophen (Tylenol) 500 Mg Tab 1000 MG PO Q8 PRN for Pain for 30 Days, TAB (Changed from: HS) Tramadol (Ultram) 50 Mg Tab 50 MG PO Q6 PRN for Pain for 30 Days, TAB (Changed from: HS) Continued Medications: Allopurinol (Allopurinol) 100 Mg Tab 100 MG PO BID Aspirin (Aspirin) 81 Mg Tab 162 MG PO DAILY Coenzyme Q10 (Ubidecarenone) (Coq-10) 30 Mg Cap 30 MG PO DAILY Fish Oil ([place]-3) 1 Ea Cap 3 CAP PO BID, CAP Metoprolol Succ (Toprol Xl) (Toprol-Xl) 25 Mg Tabcr 12.5 MG PO BID, #30 TAB Misc Natural Products (Lutein Vision Blend) 1 Cap Cap 1 CAP PO DAILY Simvastatin (Zocor) 20 Mg Tab 20 MG PO HS, TAB Admission Information HPI (per Admitting provider): This is an 87 y/o male with PMHx of CAD s/p stent, CKD stage 3 and other problems as outlined below who presents to the ED c/o neck pain for 1-2 weeks. Pt reports that he has been experiencing pain in the posterior aspect of his neck that radiates into his head. He rates the pain at a 2/10 when laying still but the pain increases to a 10/10 with any movement. Pt has been taking Tylenol and Tramadol at home for his sxs with some relief. This morning he noticed the pain was radiating down the anterior aspect of his neck but not into his chest. Patient denies recent history of trauma or fall. He denies back or arm pain. Pt also mentions that he feels like there is a "blockage" in his rectum as he has to strain to have a BM. mentions patient has not had a good appetite. Pt was a long-time tobacco user. He has never had a colonoscopy. Pt denies recent weight loss or night sweats. Pt denies fever/chills, diaphoresis, chest pain, SOB, cough, hemoptysis, abd pain, N/V, hematochezia, melena, bladder issues, LE edema, calf pain, lightheadedness/dizziness. In the ED, vitals are stable. Labs are unremarkable. C spine CT + a mass within C2 with subsequent C2 fx. There is a 2nd mass within the L thyroid cartilage. CT head is negative. Pt is stable and will be admitted for further evaluation and treatment. Physical Exam (per Admitting): General Appearance: WD/WN, no apparent distress, + pertinent finding (Pt is laying in bed with , daughter and granddaughter at bedside) Head: normocephalic, atraumatic Eyes: normal inspection ENT: hearing grossly normal Neck: supple, + pertinent finding (C-collar in place) Respiratory/Chest: chest non-tender, lungs clear (anterior auscultation), normal breath sounds, no respiratory distress Cardiovascular: regular rate, rhythm, no edema, no murmur Abdomen/GI: normal bowel sounds, non tender, soft Back: normal inspection Extremities/Musculoskelatal: normal inspection, no calf tenderness, no pedal edema Neurologic/Psych: brim buster II-XII nml as tested, no motor/sensory deficits, alert , normal mood/affect, oriented x 3 Skin: normal color, warm/dry Hospital Course Patient was admitted for neck pain and was found to have likely stage 4 lung cancer (based on imaging results noted above). CT c-spine showed a mass at the base of C2 with resultant compression fracture. Orthopedic spine was consulted and recommended that patient wear a c-collar at all times, except when eating or bathing. Radiation oncology was consulted and plan on initiating outpatient palliative radiation to the c-spine. Patient initially declined biopsy or further treatment options. However, after discussion with Radiation oncology, patient willing to proceed with tissue biopsy. Patient declined workup as an inpatient, desiring to be discharged home. Will therefore arrange outpatient follow up for patient to obtain evaluation for bronchoscopy and biopsy. Pain control was achieved with a lidoderm patch and the c-collar. Patient deemed stable for discharge with Family Medicine, Orthopedic and Radiation oncology follow up. Patient will also need a referral for outpatient bronchoscopy for biopsy. PE on discharge: General- awake; alert; NAD Eyes- EOMI; no scleral icterus Neck- c-collar in place Lungs- CTA bilaterally; no wheezes/crackles Heart- RRR; no m/r/g Abdomen- soft; NTND; nBS Back- no gross abnormalities Extremities- no c/c/e; no deformity Neuro- no focal deficits Skin- no appreciable rash . Total time spent on discharge = This includes examination of the patient, discharge planning, medication reconciliation, and communication with other providers. Discharge Instructions Discharge Instructions Admission Reason for Admission: C2 Cervical Fracture Discharge Discharge Diagnosis / Problem: Likely metastatic cancer Discharge Goals Goal(s): Diagnostic testing Activity Recommendations Activity Limitations: resume your previous activity . Instructions / Follow-Up Instructions / Follow-Up Please wear the [place] J collar at all times. You may take it off to eat and to shower. You will be contacted with follow up appointments with Family Medicine Dr. Cisse and Orthopedic spine surgery Dr. Silva. Current Hospital Diet Patient's current hospital diet: Regular Diet Discharge Diet Recommended Diet: Regular Diet Pending Studies Studies pending at discharge: no Medical Emergencies . Who to Call and When: Medical Emergencies: If at any time you feel your situation is an emergency, please call 911 immediately. . Non-Emergent Contact Non-Emergency issues call your: Primary Care Provider . . "Provider Documentation" section prepared by Rozina Navarro. VTE Core Measure Inpt VTE Proph given/why not?: Enoxaparin (Lovenox)SQ Additional Copies To Mian Cisse M.D. (MEDICAL) Frank Avila M.D.
--- NOTE | 2016-11-15 10:45 | Progress Note ---
Progress Note Date of Service Nov 15, 2016. Progress Note Case was discussed with patient's PCP Dr. Cisse. Dr. Cisse will coordinate expedited follow up and referral to Pulmonary for bronchoscopy for biopsy. Patient scheduled to follow up with Orthopedic spine surgery Sriram Villavicencio ( Dr. Silva's PA) on December 01 at 10:30am at [facility].
[2016-12-12] MEDS ORDERED: [UNRECOGNIZED DRUG - CODE] TD (10:02)
[2016-12-12] MEDS ORDERED: ACET-1256 PO (10:02)
[2016-12-12] MEDS ORDERED: TRAM-10 PO (10:02)
[2016-12-12] MEDS ORDERED: [UNRECOGNIZED DRUG - CODE] PO (10:02)
[2017-01-10] MEDS ORDERED: [UNRECOGNIZED DRUG - CODE] (14:47)
[2017-01-10] MEDS ORDERED: vit d (14:47)
[2017-01-10] MEDS ORDERED: PYRAZINAMIDE (14:47)
[2017-01-10] MEDS ORDERED: RIFA300C34 PO (14:47)
[2017-01-10] MEDS ORDERED: [UNRECOGNIZED DRUG - REMARK] (14:47)
[2017-01-10] MEDS ORDERED: BG (14:47)
[2017-01-10] MEDS ORDERED: [UNRECOGNIZED DRUG - CODE] (14:47)
[2017-04-12] MEDS ORDERED: CALC-393 PO (14:04)
[2017-04-12] MEDS ORDERED: PROC1TAB5 PO (14:04)
[2017-04-12] MEDS ORDERED: TAMS0.4C38 PO (14:04)
[2017-04-12] MEDS ORDERED: ONDA-63 PO (14:04)
[2017-04-12] MEDS ORDERED: ECHI400C11 PO (14:04)
[2017-04-12] MEDS ORDERED: HYDR2.5C37 TOP (14:04)
[2017-04-12] MEDS ORDERED: POLY335019 PO (14:04)
[2017-04-12] MEDS ORDERED: FENT25DI10 TD (14:04)
[2017-04-12] MEDS ORDERED: SUCR1TAB29 PO (14:04)
[2017-04-12] MEDS ORDERED: CHOL1000 PO (14:04)
[2017-04-12] MEDS ORDERED: DOCU-94 PO (14:04)
== END 2016-11-14 19:00 | disposition home or self-care (01) | DRG 181 ==
LOC: ENRESERVDT → ENRESERVTM → C.EDB 11:05 → C.MSW 14:17
PROVIDERS: ADMIT Internal Medicine; ATTEND Internal Medicine
DX: C34.92 Malignant neoplasm of unspecified part of left bronchus or lung (principal); C79.51 Secondary malignant neoplasm of bone; I25.10 Atherosclerotic heart disease of native coronary artery without angina pectoris; I12.9 Hypertensive chronic kidney disease with stage 1 through stage 4 chronic kidney disease, or unspecified chronic kidney disease; N18.3 Chronic kidney disease, stage 3 (moderate); E78.5 Hyperlipidemia, unspecified; Z95.5 Presence of coronary angioplasty implant and graft; J43.9 Emphysema, unspecified; Z87.891 Personal history of nicotine dependence; Z53.29 Procedure and treatment not carried out because of patient's decision for other reasons

== ENCOUNTER 2016-11-28 08:14 | Day surgery (SDC) | payer OTHER ==
[~2016-11-28] VITALS: Ht 175.3 cm; Wt 83.0 kg
[2016-11-28] VITALS (16 sets, daily range): BP systolic 102–128; BP diastolic 71–93; PULSE 73–89; TEMP 36.3–36.5; O2SAT 90–96; Ht 175.3 cm; Wt 83.0 kg
--- NOTE | 2016-11-28 08:00 | History and Physical ---
History & Physical Date Nov 28, 2016. Chief Complaint Lung nodules with hilar adenopathy History of Present Illness The patient is a 86 year old male with complaints of [id number] 86- year-old gentleman here for workup of apnea thoracic CT scan: 86-year-old gentleman with past medical history: Coronary artery disease status post stent, stage 3 kidney disease and recently recently admitted to the [facility] from November 13 through the 2016. Patient workup demonstrated abnormal CT findings highly suggestive for primary lung carcinoma as well as a large C2 vertebral body mass. Patient was stabilized placed in a neck collar and is here for evaluation. I have been able to review the images and discussed the findings with the patient and his . Patient is at moderate risk to possible high risk for primary lung carcinoma based off tobacco exposure, unknown Radon exposure and possible first-degree relative his brother with pulmonary carcinoma. At this time the patient denies fever, chills , productive cough, weight loss, pleurisy, hemoptysis or cardiac chest pain. During our conversation the patient describe a prolonged history of TB exposure with positive PPD. 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 He has had a positive PPD for over a decade but never treated are diagnosed with active TB. CT head 11/13/2016: Within normal limits CT chest with IV contrast 11/13/2016: 2.6 x 2.4 centimeter irregular lingular nodule Pathologically enlarged left hilar lymph nodes Two suspicious hepatic nodules Bilateral lower lobe and right middle lobe ground-glass changes CT of the abdomen and pelvis 11/13/2016: [address] cervical spine 11/13/2016 C2 cervical body 2.3 x 2.1 centimeter mass Serum labs: Coagulation studies within normal limits 11/13/2016 Serum chemistry within normal limits 11/14/2016 CBC within normal limits 11/14/2016 Past Medical/Surgical History Medical Problems: (1) CAD (coronary artery disease) (2) CKD (chronic kidney disease) stage 3, GFR 30-59 ml/min (3) Dyslipidemia (4) HTN (hypertension) (5) Pulmonary mass (6) Retinal hemorrhage Surgical Problems: (1) H/O heart artery stent Additional History Hepatic Disease: No Endocrine Disorder: No Kidney Disease: Yes Hypertension: No Heart Disease: Yes Bleeding Tendencies: No Infectious Diseases: latent tuberculosis Allergies Coded Allergies: No Known Allergies (Verified , 06/25/12) Home Medications Scheduled Allopurinol (Allopurinol), 100 MG PO BID Aspirin (Aspirin), 162 MG PO DAILY Coenzyme Q10 (Ubidecarenone) (Coq-10), 30 MG PO DAILY Fish Oil ([place]-3), 3 CAP PO BID Lidocaine (Lidocaine), 1 PATCH TD QAM Metoprolol Succ (Toprol Xl) (Toprol-Xl), 12.5 MG PO BID Misc Natural Products (Lutein Vision Blend), 1 CAP PO DAILY Simvastatin (Zocor), 20 MG PO HS Scheduled PRN Acetaminophen (Tylenol), 1,000 MG PO Q8 PRN for Pain Tramadol (Ultram), 50 MG PO Q6 PRN for Pain Physical Examination Skin: warm/dry Eyes: normal inspection, EOMI, sclerae normal ENT: normal ENT inspection, pharynx normal, + pertinent finding (neck brace) Head: normocephalic, atraumatic Neck: supple, no adenopathy, trachea midline Respiratory/Chest: lungs clear, normal breath sounds, no respiratory distress Cardiovascular: regular rate, rhythm, no edema, no murmur Abdomen / GI: normal bowel sounds, non tender Back: normal inspection Extremities: normal inspection, normal range of motion Neurologic/Psych: no motor/sensory deficits, alert, normal reflexes, oriented x 3 Diagnosis Pulmonary nodules: Primary lung carcinoma, metastatic carcinoma, tuberculosis ASA Classification: ASA Class III Plan of Treatment Bronchoscopy: Bronchial alveolar lavage, intrabronchial biopsy, cytology brush, transbronchial biopsy, transtracheal/transbronchial needle aspiration
[~2016-11-28 08:14] MED LIST: ALL100 PO; ASPI-461 PO; COEN30CA8 PO; LDDP5 TD; METO25TA3 PO; MISCCAP69 PO; OMEG10007 PO; SIMV20TA2 PO; TRAM-10 PO; TYLOTC500 PO
[2016-11-28] MEDS ORDERED: MIDAZOLAM HCL 5 MG/ML 1 ML VIAL IV ONE ×2 (08:15→11:30)
[2016-11-28] MEDS ORDERED: FENTANYL CITRATE INJ 50 MCG/1 ML 2 ML VIAL IV ONE ×2 (08:15→11:30)
--- NOTE | 2016-11-28 09:05 | Procedure Note ---
Pre-Mod Sedation Assessment General Date of Moderate Sedation: Nov 28, 2016. Vital Signs: reviewed and stable Review Cardiovascular: regular rate, rhythm, no edema, no gallop, no JVD, no murmur, normal peripheral pulses Abdomen: normal bowel sounds, non tender, soft, no organomegaly, no pulsatile mass, normal rectal exam, occult blood negative Lungs: chest non-tender, lungs clear, normal breath sounds, no respiratory distress, no accessory muscle use Airway Class: III Pre-Sedation Airway Assessment Oral Cavity: Dental Abnormalities (multiple missing teeth no signs of dental caries) Able to Visualize Vocal Cords: Yes Short Thick Neck: No Hx of Sleep Apnea: No Smoking Status: Former Smoker Mallampati Classification: Class III (Soft palate, base of uvula) Procedure Planning Contraindications-for Mod Sed: None Yes Notes The planned sedation has been discussed with the patient and consent obtained. I have identified the patient, determined the appropriateness of sedation and have assessed the patient immediately prior to the procedure. All medicine(s) and interventions are by my order.
[2016-11-28] MEDS ORDERED: NURSING VERBAL MED ORDER ONE ×2 (09:45→11:30)
[2016-11-28] MEDS ORDERED: D5W AND NSS 1,000 ML IV SCH (09:45)
--- NOTE | 2016-11-28 11:37 | Procedure Note ---
Post-Moderate Sedation Plan General Date of Moderate Sedation Nov 28, 2016. Vital Signs: Vital Signs Past 12 Hours Date Time Temp Pulse Resp B/P Pulse Ox O2 Delivery O2 Flow Rate FiO2 11/28/16 11:15 77 22 113/76 91 Mask 8.0 11/28/16 11:10 77 22 109/83 91 Mask 8.0 11/28/16 11:05 89 22 109/81 92 Mask 8.0 11/28/16 11:00 75 20 113/85 90 Mask 8.0 11/28/16 10:55 79 20 111/83 90 Mask 8.0 11/28/16 10:50 78 20 118/87 91 Mask 8.0 11/28/16 10:45 77 23 120/77 95 Mask 8.0 11/28/16 10:40 80 18 128/91 95 Mask 6.0 11/28/16 10:09 76 18 128/93 96 Mask 6.0 11/28/16 08:45 36.3 81 22 115/88 93 Room Air Review - Discharge Plan Post Moderate Sedation Plan: On clinical assessment, the patient appears to have tolerated the conscious sedation without complications. Patient is recovering as anticipated. Patient will continue to be monitored by nursing and may be discharged when conscious sedation discharge criteria are met.
--- NOTE | 2016-11-28 11:55 | Bronchoscopy Procedure Note ---
Bronchoscopy Procedure Note Procedure: Bronchoscopy, conscious sedation, intrabronchial needle aspiration, intrabronchial forceps Consent: Obtained to the patient placed in the chart Preprocedural diagnosis: Pulmonary nodule Postprocedural diagnosis: Cancer Analgesia: 4% gel lidocaine: 2 cc via the right naris 2% liquid lidocaine: Via bronchoscopy Sedation: Fentanyl IV: 50 g Versed IV: 3 mg Procedure: The Olympus video bronchoscope was used for this procedure passed down to the right naris. Right naris: Anatomically within normal limits Posterior naris/posterior oropharynx: Anatomically within normal limits Periglottic: Multiple mucous plugs easily cleared Glottis: Anatomically within normal limits Vocal cords: Anatomically within normal limits with proper abduction and abduction Subglottis/trachea: Anatomically within normal limits Essence: Sharp and within normal limits Right bronchial tree: Right mainstem: Anatomically within normal limits Right upper lobe: Anatomically within normal limits Bronchus intermedius: Anatomically within normal limits Right middle lobe: Anatomically within normal limits Right lower lobe: Anatomically within normal limits Left bronchial tree: Left mainstem: Anatomically within normal limits Secondary essence: Abnormal endobronchial lesion and splayed essence Takeoff to the left upper lobe/lingula: Lingula obstructed with endobronchial mass, 90% of the takeoff to the left upper lobe obstructed with endobronchial mass Samples: All samples were obtained via the mass obstructing the lingula and left upper lobe Intra-bronchial needle aspiration: 1 Intrabronchial forceps: 3 BAL: Left upper lobe HELEN: Cytopathologist noted signs of cancer. Complications: None Follow-up: Patient will be discharged and follow-up in the pulmonary [facility]
--- NOTE | 2016-11-28 12:05 | Discharge Instructions ---
Discharge Instructions Date of Service Nov 28, 2016. Admission Reason for Admission: With [place]a, Metastatic Ca, Lung Nodule Discharge Discharge Diagnosis / Problem: cancer possible primary lung small cell Discharge Goals Goal(s): Diagnostic testing Activity Recommendations Activity Limitations: resume your previous activity Lifting Limitations: none Exercise/Sports Limitations: none May Resume Sexual Activity: when tolerated Shower/Bathe: no limitations Driving or Machine Use: no limitations (patient currently on fentanyl patch, should not drive) . Instructions / Follow-Up Instructions / Follow-Up Follow-up in the [facility] clinic in one week Current Hospital Diet Patient's current hospital diet: Discharge Diet Recommended Diet: Regular Diet Procedures Procedures Performed: Bronchoscopy with endobronchial biopsies and bronchial alveolar lavage Pending Studies Studies pending at discharge: yes List of pending studies: pathology and microbiology Medical Emergencies . Who to Call and When: Medical Emergencies: If at any time you feel your situation is an emergency, please call 911 immediately. . Non-Emergent Contact Non-Emergency issues call your: Care Process Manager Increased hemoptysis . . "Provider Documentation" section prepared by Dov Coto. VTE Core Measure Inpt VTE Proph given/why not?: Treatment not indicated
[2016-12-12] MEDS ORDERED: [UNRECOGNIZED DRUG - CODE] TD (10:02)
[2016-12-12] MEDS ORDERED: ACET-1256 PO (10:02)
[2016-12-12] MEDS ORDERED: TRAM-10 PO (10:02)
[2016-12-12] MEDS ORDERED: [UNRECOGNIZED DRUG - CODE] PO (10:02)
[2017-01-10] MEDS ORDERED: [UNRECOGNIZED DRUG - CODE] (14:47)
[2017-01-10] MEDS ORDERED: [UNRECOGNIZED DRUG - CODE] (14:47)
[2017-01-10] MEDS ORDERED: PYRAZINAMIDE (14:47)
[2017-01-10] MEDS ORDERED: BG (14:47)
[2017-01-10] MEDS ORDERED: vit d (14:47)
[2017-01-10] MEDS ORDERED: [UNRECOGNIZED DRUG - REMARK] (14:47)
[2017-01-10] MEDS ORDERED: RIFA300C34 PO (14:47)
[2017-04-12] MEDS ORDERED: SUCR1TAB29 PO (14:04)
[2017-04-12] MEDS ORDERED: PROC1TAB5 PO (14:04)
[2017-04-12] MEDS ORDERED: FENT25DI10 TD (14:04)
[2017-04-12] MEDS ORDERED: CALC-393 PO (14:04)
[2017-04-12] MEDS ORDERED: TAMS0.4C38 PO (14:04)
[2017-04-12] MEDS ORDERED: DOCU-94 PO (14:04)
[2017-04-12] MEDS ORDERED: ONDA-63 PO (14:04)
[2017-04-12] MEDS ORDERED: HYDR2.5C37 TOP (14:04)
[2017-04-12] MEDS ORDERED: ECHI400C11 PO (14:04)
[2017-04-12] MEDS ORDERED: CHOL1000 PO (14:04)
[2017-04-12] MEDS ORDERED: POLY335019 PO (14:04)
== END 2016-11-28 14:20 | disposition home or self-care (01) ==
LOC: C.ACU 08:14
PROVIDERS: ATTEND Internal Medicine Critical Care Medicine
DX: C34.92 Malignant neoplasm of unspecified part of left bronchus or lung (principal); A15.9 Respiratory tuberculosis unspecified; I25.10 Atherosclerotic heart disease of native coronary artery without angina pectoris; I12.9 Hypertensive chronic kidney disease with stage 1 through stage 4 chronic kidney disease, or unspecified chronic kidney disease; N18.3 Chronic kidney disease, stage 3 (moderate); E78.5 Hyperlipidemia, unspecified; Z87.891 Personal history of nicotine dependence

== ENCOUNTER → 2016-12-06 | Outpatient (CLI) | payer OTHER ==
[~2016-12-06] MED LIST changes: +ACET-1256 PO; +BG; +CALC-393 PO; +CEPH500C PO; +CHOL1000 PO; +DOCU-94 PO; +ECHI400C11 PO; +ENOX1INJ9 SQ; +FENT25DI10 TD; +HYDR2.5C37 TOP; +ONDA-63 PO; +POLY335019 PO; +PROC1TAB5 PO; +PYRAZINAMIDE; +RIFA300C34 PO; +SUCR1TAB29 PO; +TAMS0.4C38 PO; +[UNRECOGNIZED DRUG - CODE]; +[UNRECOGNIZED DRUG - CODE]; +[UNRECOGNIZED DRUG - CODE] PO; +[UNRECOGNIZED DRUG - CODE] TD; +[UNRECOGNIZED DRUG - REMARK]; +vit d
--- NOTE | 2016-12-26 14:47 | Radiation Onc End of Treatmnt ---
End of Treatment Documentation Date Dec 26, 2016. 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 Rodriguez is a 86-year-old gentleman with a remote smoking history who recently presented with upper cervical neck pain and some weight loss. The patient presented to the emergency room on [address] of the head which was negative. The patient did have a CT of the cervical spine which did reveal: "1. A 2.3 x 2.1 cm destructive mass within the left anterior base of the C2 vertebral body as described above. This results in a mild inferior endplate compression fracture at C2. No associated retropulsion. This is highly suspicious for a metastatic lesion. 2. There is a second 1.5 cm destructive mass centered within the left thyroid cartilage. No airway compromise." The patient subsequently did have a CT of the chest/abdomen/pelvis which revealed: "IMPRESSION: 1. 2.8 x 2.4 cm irregular lingular nodule highly suggestive of bronchogenic adenocarcinoma. 2. Multiple pathologically enlarged left hilar lymph nodes suggestive of ruby spread of disease. Associated occlusion of the lingular bronchus, severe narrowing of the left upper lobe bronchus and narrowing of several pulmonary arteries. 3. Two hepatic lesions highly suggestive of metastatic disease. 4. Suspected scattered lytic lesions within the ribs which suggest metastatic disease. 5. Multifocal groundglass opacities within the right lung which favor an infectious process" and "1. Two hepatic lesions suggestive of metastasis." The patient was seen by Dr. Silva from orthopedic surgery who did offer to potentially pursue a biopsy over the patient initially refused. We were asked to evaluate the patient for consideration of palliative radiation therapy to the cervical spine. Currently, the patient states that he does have significant pain in his cervical spine. He denies any focal neurologic deficits or numbness/tingling. He denies any hemoptysis, fevers, chills or night sweats. He does have some weight loss measures at least 10-15 pounds loss over the last several weeks. His appetite is poor as well. He underwent a bronchoscopy and biopsy 11/28/2016. This revealed malignant cells consistent with small cell carcinoma. Case [id number]. Decision was made to give palliative radiation therapy to the cervical spine. This was completed 12/13/2016. He received 3000 cGy Physics Course Treatment Site [employer] Start Date End Date Elapsed Days # TX Daily Dose (cGy) Total Dose (cGy) C1- C-spine Parallel Opposed 15X 11/30/2016 12/13/2016 14 10 300 3000 Do documented final doses agree with prescribed doses? Yes If not, explain: Is patients chart complete and accurate? Yes Additional Notes He completed his course of palliative radiation therapy. He did not require any breaks in treatment. He'll be following up with Dr. Niyah León in regards to future treatment. He'll continue to complete staging studies as an outpatient. We asked him to return to our office in one month. He may call if he has been questions or concerns in the interim. Pain Management Radiation therapy was given for palliation of pain. He had pain levels of 5-8. He was prescribed fentanyl patch. Pain management will continue as an outpatient through the primary care physician as well as Dr. Niyah León. Copies To Mian Cisse M.D. (MEDICAL); Frank Avila M.D.; Cuco León M.D.
== END | disposition home or self-care (01) ==
LOC: C.ONC 14:53
PROVIDERS: ATTEND Physician Assistant Medical
DX: Z51.0 Encounter for antineoplastic radiation therapy (principal); C34.90 Malignant neoplasm of unspecified part of unspecified bronchus or lung; C79.51 Secondary malignant neoplasm of bone

== ENCOUNTER → 2016-12-12 | Day surgery (SDC) | payer OTHER ==
--- NOTE | 2016-12-11 12:44 | History and Physical ---
History & Physical Date Dec 11, 2016. Chief Complaint R/O active TB History of Present Illness The patient is a 86 year old male with complaints of diffuse SCLCa with hx of LTB. 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 Diffuse small cell lung carcinoma: Patient currently undergoing radiation therapy to the C2 mass for stabilization. He has also did undergo brain imaging and PET-CT for further evaluation of the currently diagnosed small cell lung carcinoma. He is set up to see Dr. Yoandy León from the Oncology Department. 2. Infectious disease: Patient has a long history of exposure to tuberculosis and a positive PPD. He is currently asymptomatic and does not need to be isolated. Previous bronchoscopic samples have been sent for histologic, cytologic in flow pathology so there is no further sample available for microbiologic workup. He will require repeat bronchoscopy and evaluation for definitive latent TB and/or active tuberculosis. At this time I would not initiate systemic chemotherapy until his latent and/or active TB has been treated. Past Medical/Surgical History Medical Problems: (1) CAD (coronary artery disease) (2) CKD (chronic kidney disease) stage 3, GFR 30-59 ml/min (3) Dyslipidemia (4) HTN (hypertension) (5) Pulmonary mass (6) Retinal hemorrhage Surgical Problems: (1) H/O heart artery stent Additional History Hepatic Disease: No Endocrine Disorder: No Kidney Disease: No Hypertension: No Heart Disease: No Bleeding Tendencies: No Infectious Diseases: Yes (LTB) Other: Diffuse SCLCa Allergies Coded Allergies: No Known Allergies (Verified , 11/28/16) Home Medications Scheduled Allopurinol (Allopurinol), 100 MG PO BID Aspirin (Aspirin), 162 MG PO DAILY Coenzyme Q10 (Ubidecarenone) (Coq-10), 30 MG PO DAILY Fish Oil ([place]-3), 3 CAP PO BID Lidocaine (Lidocaine), 1 PATCH TD QAM Metoprolol Succ (Toprol Xl) (Toprol-Xl), 12.5 MG PO BID Misc Natural Products (Lutein Vision Blend), 1 CAP PO DAILY Simvastatin (Zocor), 20 MG PO HS Scheduled PRN Acetaminophen (Tylenol), 1,000 MG PO Q8 PRN for Pain Tramadol (Ultram), 50 MG PO Q6 PRN for Pain Physical Examination Skin: warm/dry, no rash Eyes: normal inspection, EOMI, sclerae normal ENT: normal ENT inspection, pharynx normal Head: normocephalic, atraumatic Neck: supple, no adenopathy, trachea midline Respiratory/Chest: lungs clear, normal breath sounds, no respiratory distress Cardiovascular: regular rate, rhythm, no edema, no murmur Abdomen / GI: normal bowel sounds, non tender Back: normal inspection Extremities: normal inspection, normal range of motion Neurologic/Psych: no motor/sensory deficits, alert, normal reflexes, oriented x 3 Diagnosis SCLCa and LTB ASA Classification: ASA Class IV Plan of Treatment Bronchoscopy with conscious sedation and BAL: After bronchoscopy and LFTs the plan is to start the patient on 4 drug TB regimen and wait bronchoscopy results to determine if we are dealing with active TB or LTB. Start daily Isoniazid, Rifampin, Ethambutol and Pyrazinamide for 2 months then obtain sputum sample. At that time we will have to monitor our patient clinically and work with public health to determine our next step as this patient also has diffuse SCLCa. Start
[2016-12-12] VITALS (14 sets, daily range): BP systolic 110–140; BP diastolic 70–98; PULSE 78–87; TEMP 36.5–36.8; O2SAT 89–97; Ht 175.3 cm; Wt 83.5 kg
[~2016-12-12] VITALS: Ht 175.3 cm; Wt 83.5 kg
[~2016-12-12] MED LIST changes: +FENTANYL CITRATE INJ 50 MCG/1 ML 2 ML VIAL IV ONE; +LIDOCAINE 4% INH SOLN 4 ML BTL ONE; +LIDOCAINE HCL 2% LOCAL 50ML VIAL INFIL ONE; +MIDAZOLAM HCL 5 MG/ML 1 ML VIAL IV ONE; +NURSING VERBAL MED ORDER ONE
--- NOTE | 2016-12-12 10:14 | Procedure Note ---
Pre-Mod Sedation Assessment General Date of Moderate Sedation: Dec 12, 2016. Review Cardiovascular: regular rate, rhythm, no edema, no gallop, no JVD, no murmur, normal peripheral pulses Abdomen: normal bowel sounds, non tender, soft, no organomegaly, no pulsatile mass, normal rectal exam, occult blood negative Lungs: chest non-tender, + pertinent finding (decreased BS RUL anterior) Airway Class: II Pre-Sedation Airway Assessment Oral Cavity: WNL Able to Visualize Vocal Cords: Yes Short Thick Neck: Yes Hx of Sleep Apnea: No Smoking Status: Former Smoker Mallampati Classification: Class II ASA Classification: Class IV Procedure Planning Contraindications-for Mod Sed: None Yes Notes The planned sedation has been discussed with the patient and consent obtained. I have identified the patient, determined the appropriateness of sedation and have assessed the patient immediately prior to the procedure. All medicine(s) and interventions are by my order.
--- NOTE | 2016-12-12 10:14 | History & Physical Bridge Note ---
H&P Re-Evaluation Bridge Note: I have examined the patient, reviewed the History & Physical and in the interval since the performance of the History & Physical I have noted the following changes of clinical significance: No changes noted
--- NOTE | 2016-12-12 11:56 | Discharge Instructions ---
Discharge Instructions Date of Service Dec 12, 2016. Admission Reason for Admission: TB Discharge Discharge Diagnosis / Problem: rule out active tuberculosis Discharge Goals Goal(s): Diagnostic testing Activity Recommendations Activity Limitations: resume your previous activity . Instructions / Follow-Up Instructions / Follow-Up Follow-up in the [facility] pulmonary [facility] Current Hospital Diet Patient's current hospital diet: Discharge Diet Recommended Diet: Regular Diet Procedures Procedures Performed: Bronchoscopy with bronchial alveolar lavage of the left upper lobe as well as conscious sedation Pending Studies Studies pending at discharge: yes List of pending studies: Mycobacterial analysis as well as fungal and atypical/AFB analysis of the bronchial washing/lavage Medical Emergencies . Who to Call and When: Medical Emergencies: If at any time you feel your situation is an emergency, please call 911 immediately. . Non-Emergent Contact Non-Emergency issues call your: Grain Elevator Operator Call Non-Emergent contact if: temperature is above 101.5 . . "Provider Documentation" section prepared by Dov Coto. VTE Core Measure Inpt VTE Proph given/why not?: Treatment not indicated
--- NOTE | 2016-12-12 12:02 | Bronchoscopy Procedure Note ---
Bronchoscopy Procedure Note Procedure: Bronchoscopy, bronchial alveolar lavage of the left upper lobe, conscious sedation Consent: Obtained to the patient placed in the chart Preprocedural diagnosis: Small cell lung carcinoma/rule out active tuberculosis Postprocedural diagnosis: Small cell lung carcinoma/rule out active tuberculosis Start Time: 1133 Finish time: 1143 Analgesia: 2% liquid lidocaine: Via nebulizer 4% gel lidocaine: Via right naris 2% liquid lidocaine: Via bronchoscopy Sedation: IV Versed: 1 mg IV fentanyl: 25 g Procedure: The Olympus video bronchoscope was used for this procedure passed out through the patient's right naris. Right naris and posterior naris: Anatomically within normal limits Posterior oropharynx/ Rhiannon-Glottis: Notable mucous and erythema as well as edema consistent with radiation mucositis Glottis: Mild erythema but anatomically within normal limits Vocal cords: Proper abduction and abduction Subglottis/trachea/Essence: Anatomically within normal limits Right bronchial tree: Right mainstem bronchus: Anatomically within normal limits Right upper lobe: Anatomically within normal limits Bronchus intermedius: Anatomically within normal limits Right middle lobe: Anatomically within normal limits Right lower lobe: Anatomically within normal limits Left bronchial tree: Left mainstem bronchus: Anatomically within normal limits Secondary essence: Mildly erythematous and widened Left lower lobe: Anatomically within normal limits Lingula: Completely obstructed by atypical mucus/mass Left upper lobe: Takeoff to the left upper lobe completely involved with atypical mucous appearance consistent with known diagnosis of small cell lung carcinoma Bronchial lavage: 60 cc lavage was performed of the left upper lobe with approximate 40 cc returned Complications: None Follow-up: Follow-up in the [facility] This analysis will be sent for TB/AFB and if AFB positive sent off for DNA probe I've been working with pelvic health in this patient will be initiated on 4 drug regimen for active TB treatment I've discussed this case with the patient's family at length and performed them that they in any immediate family members as well as friends should be reevaluated with QuantiFERON Gold serum study
--- NOTE | 2016-12-12 12:03 | Procedure Note ---
Post-Moderate Sedation Plan General Date of Moderate Sedation Dec 12, 2016. Vital Signs: Vital Signs Past 12 Hours Date Time Temp Pulse Resp B/P Pulse Ox O2 Delivery O2 Flow Rate FiO2 12/12/16 11:45 79 18 112/79 93 Nasal Cannula 4.0 12/12/16 11:40 80 16 114/76 97 Mask 6.0 12/12/16 11:40 87 17 140/98 97 Mask 6.0 12/12/16 11:35 79 17 117/80 97 Mask 6.0 12/12/16 11:30 79 17 117/80 97 Mask 4.0 12/12/16 11:25 78 16 121/79 89 Room Air 4.0 Review - Discharge Plan Post Moderate Sedation Plan: On clinical assessment, the patient appears to have tolerated the conscious sedation without complications. Patient is recovering as anticipated. Patient will continue to be monitored by nursing and may be discharged when conscious sedation discharge criteria are met. For further follow-up please refer to the bronchoscopy note
== END | disposition home or self-care (01) ==
LOC: C.ACU 09:37
PROVIDERS: ATTEND Internal Medicine Critical Care Medicine
DX: C34.90 Malignant neoplasm of unspecified part of unspecified bronchus or lung (principal); A15.0 Tuberculosis of lung; I25.10 Atherosclerotic heart disease of native coronary artery without angina pectoris; N18.3 Chronic kidney disease, stage 3 (moderate); I12.9 Hypertensive chronic kidney disease with stage 1 through stage 4 chronic kidney disease, or unspecified chronic kidney disease; E78.5 Hyperlipidemia, unspecified; Z95.5 Presence of coronary angioplasty implant and graft; Z79.82 Long term (current) use of aspirin

== ENCOUNTER → 2016-12-14 | Outpatient (CLI) | payer OTHER ==
[~2016-12-14] MED LIST changes: -FENTANYL CITRATE INJ 50 MCG/1 ML 2 ML VIAL IV ONE; -LDDP5 TD; -LIDOCAINE 4% INH SOLN 4 ML BTL ONE; -LIDOCAINE HCL 2% LOCAL 50ML VIAL INFIL ONE; -MIDAZOLAM HCL 5 MG/ML 1 ML VIAL IV ONE; -NURSING VERBAL MED ORDER ONE; -TYLOTC500 PO
--- NOTE | 2016-12-14 09:44 | DIAGNOSTIC IMAGING REPORT ---
ADDENDUM Addendum: 1. There is a destructive FDG avid mass involving the C2 vertebra, consistent with metastatic deposit. 2. The destructive left neck cartilaginous lesion involves the left thyroid cartilage not the left arytenoid cartilage. Electronically signed by: Mikal Odom M.D. 12/14/2016 11:47 AM Dictated Date/Time: 12/14/2016 11:44 AM ORIGINAL REPORT PET/CT SKULL-THIGH CLINICAL HISTORY: NON SMALL CELL LUNG CA COMPARISON STUDY: CT scan dated 11/13/2016 FINDINGS: The patient was injected with 13.6 mCi of F-18 labeled FDG. Findings standard induction phase, PET/CT imaging was performed from the skull base the upper thigh region. Within the neck, there is a 2.5 cm mass destroying the left arytenoid cartilage. This is FDG avid with SUV maximum of 10. Uptake within the neck is otherwise physiologic. Within the chest, there is a 27 mm irregularly marginated lingular mass. This is intensely FDG avid with SUV maximum of 11.3. This is consistent with a primary bronchogenic carcinoma. There is bulky left hilar adenopathy with SUV maximum of 11.7. This is felt to be neoplastic. There is FDG avid AP window adenopathy with SUV maximum of 10.1. Within the abdomen, there is intensely FDG avid left lobe hepatic mass with SUV maximum of 10.7. There is intensely FDG avid right lobe hepatic mass with FDG maximum of 6.9. Both masses are difficult to accurately measure in size on the noncontrast examination. There is an FDG avid lymph node in the left renal hilar region with SUV maximum of 5.4. This lymph node measures 11 mm in diameter. Incidental note is made of cholelithiasis. There is physiologic urinary tract and bowel activity area There is prostamegaly. There is an FDG avid lesion involving the left posterior iliac bone. This is an SUV maximum of 8.7. On CT scanning this has a groundglass matrix, but nevertheless likely represents a metastatic deposit. There is an FDG avid area within the upper cervical spine. There is no corresponding CT lesion. IMPRESSION: 1. Intensely FDG avid 2.5 cm mass destroying the left arytenoid cartilage. This is felt to be either a primary malignancy or metastatic deposit 2. Intensely FDG avid 27 mm lingular mass. This is highly suspicious for primary bronchogenic carcinoma 3. FDG avid mediastinal and left hilar adenopathy. This is felt to represent metastatic adenopathy 4. Intensely FDG avid hepatic masses consistent with metastasis 5. FDG avid lesion involving the left posterior iliac bone, likely representing a metastatic deposit. Electronically signed by: Mikal Odmo M.D. 12/14/2016 9:42 AM Dictated Date/Time: 12/14/2016 9:13 AM
== END | disposition home or self-care (01) ==
LOC: C.PET 06:42
PROVIDERS: ATTEND Physician Assistant Medical
DX: C34.12 Malignant neoplasm of upper lobe, left bronchus or lung (principal)

== ENCOUNTER → 2016-12-15 | Outpatient (CLI) | payer OTHER ==
[~2016-12-15] MED LIST changes: +GADAVIST IV PRN; +LDDP5 TD; +TYLOTC500 PO
--- NOTE | 2016-12-15 12:36 | DIAGNOSTIC IMAGING REPORT ---
MRI OF THE BRAIN COMBO CLINICAL HISTORY: Lung cancer. COMPARISON STUDY: CT of the brain dated 11/13/2016. TECHNIQUE: MRI of the brain was performed utilizing various T1 and T2-weighted sequences in the axial, sagittal, and coronal planes. Contrast-enhanced sequences were acquired following the administration of 8 cc of Gadavist. FINDINGS: Brain parenchyma: There are age-related involutional changes noting moderate patchy subcortical and periventricular microangiopathic disease. There is no hemorrhage or mass effect. There is no restricted diffusion to suggest acute ischemia. There is a questionable 3 mm focus of enhancement within the left frontal pole seen on axial postcontrast image #17. This could not be corroborated on any other sequence. No additional enhancing foci are suggested on the postcontrast images. Prominent perivascular spaces are incidentally noted in the basal ganglia. Padilla-white matter differentiation is preserved. No extra-axial fluid collection is seen. The cerebellar tonsils are normal in configuration. Ventricles, sulci, and cisterns: Prominent secondary to involutional change. Pituitary and sella: Unremarkable. Intracranial vasculature: Normal flow voids are maintained at the skull base. Orbits: The bony orbits are grossly intact. Orbital contents are normal in appearance noting bilateral ocular lens implants. Sinuses and mastoids: Clear. Calvarium: A destructive bony lesion is identified in the body of C2, consistent with metastatic disease. No distracted calvarial lesion is clearly seen. A hemangioma is suspected in the right frontal calvarium. Cervical cord: Partially visualized cervical spinal cord is normal in morphology and signal intensity. IMPRESSION: 1. Senescent changes as above with no hemorrhage, mass effect, or acute ischemia. 2. There is a questionable 3 mm focus of enhancement within the left frontal lobe. This could not the corroborated on any of the other sequences an area represent artifact. A small metastatic focus is not excluded. Attention at follow-up is recommended. 3. No additional enhancing intracranial foci are suspected. 4. A destructive bone lesion is seen in the body of C2 consistent with metastatic disease. No destructive calvarial lesion is clearly identified. Electronically signed by: aMrcos Lainez M.D. 12/15/2016 12:35 PM Dictated Date/Time: 12/15/2016 12:23 PM
== END | disposition home or self-care (01) ==
LOC: C.MRIBC 10:40
PROVIDERS: ATTEND Physician Assistant Medical
DX: C34.12 Malignant neoplasm of upper lobe, left bronchus or lung (principal); R91.8 Other nonspecific abnormal finding of lung field; C79.31 Secondary malignant neoplasm of brain

== ENCOUNTER → 2017-01-10 | Outpatient (CLI) | payer OTHER ==
[~2017-01-10] MED LIST changes: -GADAVIST IV PRN
[2017-01-10 14:47] VITALS: BP 116/79; PULSE 85; TEMP 36.4; O2SAT 92
--- NOTE | 2017-01-10 15:55 | Radiation Oncology Follow-Up ---
Radiation Oncology Follow-Up Date of Visit Jan 10, 2017. 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 Rodriguez is a 86-year-old gentleman with a remote smoking history who recently presented with upper cervical neck pain and some weight loss. The patient presented to the emergency room on [address] of the head which was negative. The patient did have a CT of the cervical spine which did reveal: "1. A 2.3 x 2.1 cm destructive mass within the left anterior base of the C2 vertebral body as described above. This results in a mild inferior endplate compression fracture at C2. No associated retropulsion. This is highly suspicious for a metastatic lesion. 2. There is a second 1.5 cm destructive mass centered within the left thyroid cartilage. No airway compromise." The patient subsequently did have a CT of the chest/abdomen/pelvis which revealed: "IMPRESSION: 1. 2.8 x 2.4 cm irregular lingular nodule highly suggestive of bronchogenic adenocarcinoma. 2. Multiple pathologically enlarged left hilar lymph nodes suggestive of ruby spread of disease. Associated occlusion of the lingular bronchus, severe narrowing of the left upper lobe bronchus and narrowing of several pulmonary arteries. 3. Two hepatic lesions highly suggestive of metastatic disease. 4. Suspected scattered lytic lesions within the ribs which suggest metastatic disease. 5. Multifocal groundglass opacities within the right lung which favor an infectious process" and "1. Two hepatic lesions suggestive of metastasis." The patient was seen by Dr. Silva from orthopedic surgery who did offer to potentially pursue a biopsy over the patient initially refused. We were asked to evaluate the patient for consideration of palliative radiation therapy to the cervical spine. Currently, the patient states that he does have significant pain in his cervical spine. He denies any focal neurologic deficits or numbness/tingling. He denies any hemoptysis, fevers, chills or night sweats. He does have some weight loss measures at least 10-15 pounds loss over the last several weeks. His appetite is poor as well. He underwent a bronchoscopy and biopsy 11/28/2016. This revealed malignant cells consistent with small cell carcinoma. Case [id number]. Decision was made to give palliative radiation therapy to the cervical spine. This was completed 12/13/2016. He received 3000 cGy (Jenise Beltrán PA-C) Interim History He had significant radiation esophagitis following treatment. He had MBXC available. He felt this caused nausea. Carafate alone as a slurry did help relieve dysphagia. He was started on fentanyl patch and continues on the fentanyl patch. The dysphagia has resolved but he continues to have neck pain. The pain can be up to level 6 with movement. When sitting still there is no pain. He is now being followed by Dr. León in medical oncology. He began chemotherapy last 01/04/2017. He is receiving DEFLECTOR OPERATOR-16 and carboplatin. He is also receiving Xgeva. He is tolerating all these medicines quite well. 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 (Jenise Beltrán PA-C) Allergies Coded Allergies: No Known Allergies (Verified , 12/12/16) Home Medications Scheduled Allopurinol (Allopurinol), 100 MG PO BID Aspirin (Aspirin), 162 MG PO DAILY Coenzyme Q10 (Ubidecarenone) (Coq-10), 30 MG PO DAILY Ethambutol Hcl (Ethambutol Hcl), 1,200 MG DAILY Lidocaine (Bulk) (Lidocaine), 1 PATCH TD HS Metoprolol Succ (Toprol Xl) (Toprol-Xl), 12.5 MG PO BID Misc Natural Products (Lutein Vision Blend), 1 CAP PO DAILY Rifampin (Rifadin), 600 MG PO DAILY Simvastatin (Zocor), 20 MG PO HS Tramadol (Ultram), 50 MG PO TID [Bg], 25 MG DAILY [Pza], 1,500 MG DAILY [vit d], DAILY Scheduled PRN Acetaminophen (Tylenol), 1,000 MG PO Q8 PRN for Pain Miscellaneous Medications [Onh], 300 MG [chemotherap] Review of Systems Gastrointestinal: Symptoms: WNL GI Comments: laxatives for occasional constipation Oral: Symptoms: No Problems Other Oral Symptoms: when eat not much taste Respiratory: Symptoms: SOB With Exertion Urinary: Symptoms: Nocturia, Frequency Comments: q 15 mins I drink a lotof water Skin: Symptoms: No Problems (Jenise Beltrán PA-C) Physical Exam Vital Signs Date Time Temp Pulse Resp B/P Pulse Ox O2 Delivery O2 Flow Rate FiO2 01/10/17 14:47 36.4 85 20 116/79 92 Pain: Patient Pain Scale: 0 - 10 Initial Pain Intensity: 0.0 Fatigue: None General Appearance: no apparent distress Eyes: normal inspection, EOMI ENT: normal ENT inspection, hearing grossly normal Neck: no adenopathy, thyroid normal Respiratory/Chest: lungs clear, no respiratory distress, no accessory muscle use Cardiovascular: regular rate, rhythm, no gallop, no murmur Extremities: no pedal edema Neurologic/Psychiatric: no motor/sensory deficits, alert, normal mood/affect Skin: warm/dry (Jenise Beltrán PA-C) Laboratory Studies Test 11/13/16 13:30 11/14/16 06:05 11/28/16 09:07 12/12/16 10:05 White Blood Count 8.95 K/uL (4.8-10.8) 8.55 K/uL (4.8-10.8) Red Blood Count 4.91 M/uL (4.7-6.1) 4.79 M/uL (4.7-6.1) Hemoglobin 15.2 g/dL (14.0-18.0) 14.5 g/dL (14.0-18.0) Hematocrit 43.6 % (42-52) 41.9 % (42-52) Mean Corpuscular Volume 88.8 fL (80-100) 87.5 fL (80-100) Mean Corpuscular Hemoglobin 31.0 pg (25-34) 30.3 pg (25-34) Mean Corpuscular Hemoglobin Concent 34.9 g/dl (32-36) 34.6 g/dl (32-36) RDW Standard Deviation 45.8 fL (36.4-46.3) 45.1 fL (36.4-46.3) RDW Coefficient of Variation 14.1 % (11.5-14.5) 14.0 % (11.5-14.5) Platelet Count 185 K/uL (130-400) 194 K/uL (130-400) Mean Platelet Volume 9.4 fL (7.4-10.4) 9.6 fL (7.4-10.4) Prothrombin Time 11.8 SECONDS (9.0-12.0) Prothrombin Time INR 1.1 (0.9-1.1) PTT 31.7 SECONDS (21.0-31.0) Partial Thromboplastin Ratio 1.2 Sodium Level 138 mmol/L (136-145) 139 mmol/L (136-145) Potassium Level 4.4 mmol/L (3.5-5.1) 3.8 mmol/L (3.5-5.1) Chloride Level 102 mmol/L (98-107) 104 mmol/L (98-107) Carbon Dioxide Level 31 mmol/L (21-32) 27 mmol/L (21-32) Anion Gap 5.0 mmol/L (3-11) 8.0 mmol/L (3-11) Est Creatinine Clear Calc Drug Dose 48.2 ml/min 57.7 ml/min Random Glucose 95 mg/dl (70-99) 92 mg/dl (70-99) Calcium Level 8.8 mg/dl (8.5-10.1) 9.1 mg/dl (8.5-10.1) Total Bilirubin 0.6 mg/dl (0.2-1) Aspartate Amino Transferase (AST) 24 U/L (15-37) Alanine Aminotransferase (ALT) 20 U/L (12-78) Alkaline Phosphatase 112 U/L (45-117) Total Protein 7.7 gm/dl (6.4-8.2) Albumin 3.3 gm/dl (3.4-5.0) Globulin 4.4 gm/dl (2.5-4.0) Albumin/Globulin Ratio 0.7 (0.9-2) Blood Urea Nitrogen 10 mg/dl (7-18) Creatinine 0.92 mg/dl (0.60-1.40) Estimated GFR () 87.0 Estimated GFR (Non- 75.0 BUN/Creatinine Ratio 10.9 (10-20) POC Glucose 98 mg/dl (70-99) 106 mg/dl (70-99) Test 12/12/16 17:48 Blood Urea Nitrogen 17 mg/dl (7-18) Creatinine 1.00 mg/dl (0.60-1.40) Estimated GFR () 78.6 Estimated GFR (Non- 67.8 BUN/Creatinine Ratio 17.1 (10-20) (Jenise Beltrán PA-C) Assessment & Plan Plan: Continue follow-up with his primary care provider and Dr. León in medical oncology. He was seen and examined by Dr. Ajit León. He is continuing on the chemotherapy every 3 weeks. He continues on Xgeva. He is continuing to use the cervical collar for stability. Recheck scanning per Dr. León. We asked him to return to our office in 3 months. He may call if he has any questions or concerns in the interim. (Jenise Beltrán PA-C) I agree with note created by Jenise Beltrán PA-C. I reviewed the patient's chart and information with her. I have examined and evaluated the patient. I reviewed relevant clinical information and answered the patient's and/or family' s questions. (Veeral. León MD) Total Time In Follow-Up I spent 20 minutes speaking to the patient about performing examination. I spent 15 minutes reviewing information and completing this note. (Jenise Beltrán PA-C) I spent 15 minutes examining and counseling the patient. (Veeral. León MD) Copy To Mian Cisse M.D. (MEDICAL); Frank Avila M.D.; Cuco León M.D.
== END | disposition home or self-care (01) ==
LOC: C.ONC 14:32
PROVIDERS: ATTEND Physician Assistant Medical
DX: Z08 Encounter for follow-up examination after completed treatment for malignant neoplasm (principal); Z92.3 Personal history of irradiation; Z85.118 Personal history of other malignant neoplasm of bronchus and lung; Z85.830 Personal history of malignant neoplasm of bone

== ENCOUNTER → 2017-03-20 | Outpatient (CLI) | payer OTHER ==
[~2017-03-20] MED LIST changes: -LDDP5 TD; -OMEG10007 PO; -TYLOTC500 PO; -[UNRECOGNIZED DRUG - CODE] PO
--- NOTE | 2017-03-20 11:49 | DIAGNOSTIC IMAGING REPORT ---
PET/CT CLINICAL HISTORY: Small cell lung cancer. COMPARISON STUDY: PET/CT dated 12/14/2016. CT scan of the chest, abdomen, and pelvis dated 11/13/2016.. TECHNIQUE: One hour following the IV administration of 14.73 mCi of F-18 FDG, PET/CT examination was performed from the orbital meatal line through the bony pelvis. Noncontrast CT is performed for the purposes of anatomic correlation and attenuation correction. Note that this does not reflect a diagnostic CT examination. Images were reviewed on a separate [employer] independent workstation. Fused images were obtained. Standard uptake values reported are maximum values within the region of interest expressed in gm/mL. FINDINGS: PET FINDINGS: Head and neck: There is expected physiologic activity within the visualized brain parenchyma at the skull base and the salivary glands. A lesion previous identified about the left lobe of the thyroid gland has resolved. Thorax: Evaluation of the thorax demonstrates expected physiologic myocardial activity. The spiculated left upper lobe mass seen on image #95 has decreased in size from previous, now measuring 2.1 x 1.5 cm (producing measured 2.7 cm). Abnormal FDG activity within this lesion has significantly decreased from previous, and there is only faint residual FDG activity identified with maximum SUV of 2.2. Left hilar adenopathy has significantly decreased in size and FDG activity from 12/14/2016. This measures approximately 1.6 cm in length and demonstrates a maximum SUV of 5.9. Low level FDG activity in the right hilum questioned on image #91 may be physiologic. There is no corresponding adenopathy seen. No FDG avid mediastinal nodes are identified. There is patchy groundglass change identified in the right middle lobe and at both lung bases. This demonstrates only low level FDG activity with a maximum SUV of 2.5. A 4 mm nodule the right lung base on image #97 is too small for PET characterization and unchanged. Abdomen and pelvis: There is expected activity within the liver, spleen, kidneys, renal collecting system, and bladder. Low-level bowel activity is likely within physical limits. There is a 1.5 cm lesion identified in the left lobe of the liver on axial image #117 and a 1.6 cm low-attenuation lesion in the right lobe seen on image #113. These lesions have decreased in size from previous and abnormal FDG activity within these lesions have resolved when compared to 12/14/2016 assessment. No new hepatic lesions are identified. Skeletal structures: There is diffuse activity seen throughout the skeleton, likely related to colony-stimulating factors. A mixed osteolytic and blastic lesion in the medial left ilium seen on image #187 is more apparent than previously. This measures approximately 3.5 cm. Abnormal tracer deposition within this lesion has resolved from previous, and there is now a photopenic defect at this site as compared to the rest of the skeletal structures. There is increasing sclerosis of a 2.4 cm lesion in the body of T3, as well as lesions within the right posterior eighth rib, body of C2, the body of T12, and the left lamina of T4. These lesions also appear photopenic on today's examination. No new destructive bony lesions are seen. Unenhanced CT images: Visualized brain parenchyma at the skull base is normal in appearance noting age-related involutional change. The orbital contents are normal as visualized. There are bilateral ocular lens implants. The visualized paranasal sinuses and the mastoid air cells are clear. The salivary and thyroid glands are normal as imaged. No cervical lymphadenopathy is identified. There is mild atherosclerotic calcification of the thoracic aorta. There is mild ectasia of the ascending thoracic aorta which measures up to 4.1 cm in diameter. The remainder of the thoracic aorta is normal in caliber. There is no axillary lymphadenopathy. The heart is normal in size and without pericardial effusion. The coronary arteries are densely calcified. The pulmonary trunk is normal in caliber. Advanced emphysema is observed. There is significant dependent atelectasis. See above under PET findings for additional assessment of pulmonary abnormalities. The unenhanced liver is normal in size and attenuation. See above under PET findings for assessment of hepatic lesions. The unenhanced spleen, pancreas, adrenal glands are grossly unremarkable. Calcified gallstones are noted. The kidneys demonstrate cortical atrophy and are without hydronephrosis. A 5.5 cm cyst is noted in the lower pole of the right kidney. There is moderate to advanced atherosclerotic calcification of the abdominal aorta which is normal in caliber. No bowel obstruction is identified. A normal appendix is seen. There is moderate colonic fecal retention. There is mild diverticulosis of left colon without CT evidence of acute diverticulitis. No intraperitoneal free air or abdominal ascites is seen. There is no abdominal, pelvic, or retroperitoneal lymphadenopathy. The prostate gland is mildly enlarged. The bladder is normal as imaged. The skeletal structures are osteopenic. Degenerative change is seen throughout the spine. Arthritic changes also seen in the shoulders. IMPRESSION: 1. Overall positive response to treatment. 2. The left upper lobe pulmonary lesion and left hilar adenopathy have significantly decreased in size and FDG activity when compared to 12/14/2016. There is mild persistent FDG activity within these lesions. 3. Two small low-attenuation hepatic lesions have significantly decreased in size and are no longer FDG avid from previous. 4. There is increasing sclerosis of bony metastatic lesions when compared to 12/14/2016. These lesions appear photopenic on today's examination. No new bone lesions are identified. 5. The lesion in the left neck above the thyroid gland has resolved. 6. Advanced emphysema. 7. There is groundglass change identified in the right middle lobe and at the lung bases. This could represent atelectasis and/or an infectious/inflammatory pneumonitis. There is only low-level FDG activity within these regions and clinical correlation will be required. 8. Cholelithiasis. 9. There is diffuse skeletal uptake, likely related to colony-stimulating factors. 10. Additional findings as above. Electronically signed by: Marcos Lainez M.D. 03/20/2017 11:48 AM Dictated Date/Time: 03/20/2017 11:22 AM
== END | disposition home or self-care (01) ==
LOC: C.PET 08:56
PROVIDERS: ATTEND Internal Medicine Hematology
DX: C34.90 Malignant neoplasm of unspecified part of unspecified bronchus or lung (principal); C79.51 Secondary malignant neoplasm of bone; C78.7 Secondary malignant neoplasm of liver and intrahepatic bile duct

== ENCOUNTER → 2017-04-04 | Outpatient (CLI) | payer OTHER ==
[~2017-04-04] MED LIST changes: +GADAVIST IV PRN
--- NOTE | 2017-04-04 15:39 | DIAGNOSTIC IMAGING REPORT ---
BRAIN COMBO CLINICAL HISTORY: LUNG CA,MRI SHOWING FRONTAL BRAIN LESION COMPARISON STUDY: 12/15/2016 TECHNIQUE: Utilizing a 1.5 Renita magnet and dedicated coil, multiplanar, multiecho imaging of the brain was performed pre and postcontrast administration. IV administration of 8.5 mL of Gadavist contrast was uneventful. FINDINGS: The small focus of enhancement left frontal lobe on the prior study is not seen currently. There is no evidence for pathologic postcontrast enhancement. Signal characteristics the cerebellar as well as cerebral hemispheres continue to show components of chronic small vessel change throughout both cerebral hemispheres. There is no evidence for an acute ischemic focus. Mild cerebral atrophy is present. IMPRESSION: 1. No evidence for abnormal postcontrast enhancement. 2. Small focus of increased signal left frontal lobe on the prior study is not identified currently and appears to have been artifactual. 3. Stable findings of chronic small vessel change. 4. No acute process The above report was generated using voice recognition software. It may contain grammatical, syntax or spelling errors. Electronically signed by: Antonio Pak M.D. 04/04/2017 3:37 PM Dictated Date/Time: 04/04/2017 3:33 PM
== END | disposition home or self-care (01) ==
LOC: C.MRI 14:32
PROVIDERS: ATTEND Internal Medicine Hematology
DX: C79.51 Secondary malignant neoplasm of bone (principal); C78.7 Secondary malignant neoplasm of liver and intrahepatic bile duct; C34.92 Malignant neoplasm of unspecified part of left bronchus or lung; G93.9 Disorder of brain, unspecified

== ENCOUNTER → 2017-04-12 | Outpatient (CLI) | payer OTHER ==
[~2017-04-12] MED LIST changes: -GADAVIST IV PRN
[2017-04-12 13:32] VITALS: BP 92/60; PULSE 72; TEMP 36.7; O2SAT 97
--- NOTE | 2017-04-12 16:08 | Radiation Oncology Follow-Up ---
Radiation Oncology Follow-Up Date of Visit Apr 12, 2017. 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 Rodriguez is a 86-year-old gentleman with a remote smoking history who recently presented with upper cervical neck pain and some weight loss. The patient presented to the emergency room on [address] of the head which was negative. The patient did have a CT of the cervical spine which did reveal: "1. A 2.3 x 2.1 cm destructive mass within the left anterior base of the C2 vertebral body as described above. This results in a mild inferior endplate compression fracture at C2. No associated retropulsion. This is highly suspicious for a metastatic lesion. 2. There is a second 1.5 cm destructive mass centered within the left thyroid cartilage. No airway compromise." The patient subsequently did have a CT of the chest/abdomen/pelvis which revealed: "IMPRESSION: 1. 2.8 x 2.4 cm irregular lingular nodule highly suggestive of bronchogenic adenocarcinoma. 2. Multiple pathologically enlarged left hilar lymph nodes suggestive of ruby spread of disease. Associated occlusion of the lingular bronchus, severe narrowing of the left upper lobe bronchus and narrowing of several pulmonary arteries. 3. Two hepatic lesions highly suggestive of metastatic disease. 4. Suspected scattered lytic lesions within the ribs which suggest metastatic disease. 5. Multifocal groundglass opacities within the right lung which favor an infectious process" and "1. Two hepatic lesions suggestive of metastasis." The patient was seen by Dr. Silva from orthopedic surgery who did offer to potentially pursue a biopsy over the patient initially refused. We were asked to evaluate the patient for consideration of palliative radiation therapy to the cervical spine. Currently, the patient states that he does have significant pain in his cervical spine. He denies any focal neurologic deficits or numbness/tingling. He denies any hemoptysis, fevers, chills or night sweats. He does have some weight loss measures at least 10-15 pounds loss over the last several weeks. His appetite is poor as well. He underwent a bronchoscopy and biopsy 11/28/2016. This revealed malignant cells consistent with small cell carcinoma. Case [id number]. Decision was made to give palliative radiation therapy to the cervical spine. This was completed 12/13/2016. He received 3000 cGy (Jenise Beltrán PA-C) Interim History He is been doing well over the past 6 months. He now has very minimal discomfort of the cervical spine. He states to be some pain if he turns his head from right to left. He notices that he has decrease in the range of motion but had this prior to treatment. Following the radiation therapy he did have dysphagia. This has steadily improved. The only times he has discomfort is if he eats foods that are spicy. His taste is back to normal. He is getting chemotherapy every 3 weeks. This is supported with Neulasta injections. He is also getting Xgeva. He does wear his cervical collar for stability. He did recently have a recheck PET/CT as well as brain MRI. (Jenise Beltrán PA-C) Allergies Coded Allergies: No Known Allergies (Verified , 12/12/16) Home Medications Scheduled Allopurinol (Allopurinol), 300 MG PO DAILY Aspirin (Aspirin), 162 MG PO DAILY Calcium Carbonate (Calcium), 2 TAB PO DAILY Cholecalciferol (Vitamin D3), 1 TAB PO DAILY Coenzyme Q10 (Ubidecarenone) (Coq-10), 30 MG PO DAILY Docusate Sodium (Colace), 1 CAP PO BID Echinacea (Echinacea), 7 CAP PO DAILY Fentanyl (Duragesic), 12 MCG TD [id number] Hydrocortisone 2.5% (Rectal) (Anusol-Hc 2.5%), 1 APPLN TOP BID Metoprolol Succ (Toprol Xl) (Toprol-Xl), 12.5 MG PO BID Misc Natural Products (Lutein Vision Blend), 2 CAP PO DAILY Polyethylene Glycol 3350 (Miralax), 17 GM PO DAILY Simvastatin (Zocor), 20 MG PO HS Sucralfate (Carafate), 1 TAB PO QID Tamsulosin Hcl (Flomax), 1 CAP PO DAILY Scheduled PRN Acetaminophen (Tylenol), 1,000 MG PO Q8 PRN for Pain Ondansetron (Ondansetron HCl), 1 TAB PO Q8 PRN for Nausea or Vomiting Prochlorperazine Maleate (Compazine), 1 TAB PO Q6 PRN for Nausea or Vomiting Tramadol (Ultram), 50 MG PO Q6H PRN for Pain Review of Systems Gastrointestinal: Symptoms: WNL, Constipation GI Comments: Has antiemetics to use PRN;Uses stool softner and miralax; Oral: Other Oral Symptoms: Burning sensation in throat present w/certain foods and brushing teeth; Respiratory: Symptoms: WNL Urinary: Symptoms: WNL Comments: Some urinary dribbling at end of void that PCP prescribed med for; Skin: Symptoms: No Problems (Jenise Beltrán PA-C) Physical Exam Vital Signs Date Time Temp Pulse Resp B/P (MAP) Pulse Ox O2 Delivery O2 Flow Rate FiO2 04/12/17 13:32 36.7 72 24 92/60 97 Fatigue: None General Appearance: no apparent distress Eyes: normal inspection, EOMI ENT: normal ENT inspection, hearing grossly normal, pharynx normal (dryness of the mouth and throat.) Neck: no adenopathy, thyroid normal Respiratory/Chest: lungs clear, no respiratory distress, no accessory muscle use Cardiovascular: regular rate, rhythm, no gallop, no murmur Abdomen: non tender, soft Extremities: no pedal edema Neurologic/Psychiatric: no motor/sensory deficits, alert, normal mood/affect Skin: warm/dry Lymphatic: no adenopathy (Jenise Beltrán PA-C) Additional Studies Patient: JAYNA RODRIGUEZ Address1: [address] [facility] Rec: [id number] Address2: Acct ID: [id number] [facility] Zip: [place] [address] Date: 1930 Sex: M Room/Bed: Ref Phy: Declan León MD SC: CLennyPET Att Phy: Cuco León M.D. Report #: [id number] Rosario Phy: Mian Cisse M.D. (MEDICAL) Test: PETCTST Admit Phy: Lan Analyst: MAGDY Interpreting Phy: Marcos Lainez M.D. Diagnosis: C34.90 MALIGNANT NEOPLASM OF UNSPECIFIED PART OF Ordering Phy: Cuco León M.D. Service Date: 03/20/17 Admit Date: 03/20/17 MNE: PWRSCRIBE CONF: DICTATED BY: Marcos Lainez M.D.]] CC: Mian Cisse M.D. (MEDICAL) Cuco León M.D. Patel, Viral ., MD Endcc: [~ rep ct add3]] PET/CT CLINICAL HISTORY: Small cell lung cancer. COMPARISON STUDY: PET/CT dated 12/14/2016. CT scan of the chest, abdomen, and pelvis dated 11/13/2016.. TECHNIQUE: One hour following the IV administration of 14.73 mCi of F-18 FDG, PET/CT examination was performed from the orbital meatal line through the bony pelvis. Noncontrast CT is performed for the purposes of anatomic correlation and attenuation correction. Note that this does not reflect a diagnostic CT examination. Images were reviewed on a separate [employer] independent workstation. Fused images were obtained. Standard uptake values reported are maximum values within the region of interest expressed in gm/mL. FINDINGS: PET FINDINGS: Head and neck: There is expected physiologic activity within the visualized brain parenchyma at the skull base and the salivary glands. A lesion previous identified about the left lobe of the thyroid gland has resolved. Thorax: Evaluation of the thorax demonstrates expected physiologic myocardial activity. The spiculated left upper lobe mass seen on image #95 has decreased in size from previous, now measuring 2.1 x 1.5 cm (producing measured 2.7 cm). Abnormal FDG activity within this lesion has significantly decreased from previous, and there is only faint residual FDG activity identified with maximum SUV of 2.2. Left hilar adenopathy has significantly decreased in size and FDG activity from 12/14/2016. This measures approximately 1.6 cm in length and demonstrates a maximum SUV of 5.9. Low level FDG activity in the right hilum questioned on image #91 may be physiologic. There is no corresponding adenopathy seen. No FDG avid mediastinal nodes are identified. There is patchy groundglass change identified in the right middle lobe and at both lung bases. This demonstrates only low level FDG activity with a maximum SUV of 2.5. A 4 mm nodule the right lung base on image #97 is too small for PET characterization and unchanged. Abdomen and pelvis: There is expected activity within the liver, spleen, kidneys, renal collecting system, and bladder. Low-level bowel activity is likely within physical limits. There is a 1.5 cm lesion identified in the left lobe of the liver on axial image #117 and a 1.6 cm low-attenuation lesion in the right lobe seen on image #113. These lesions have decreased in size from previous and abnormal FDG activity within these lesions have resolved when compared to 12/14/2016 assessment. No new hepatic lesions are identified. Skeletal structures: There is diffuse activity seen throughout the skeleton, likely related to colony-stimulating factors. A mixed osteolytic and blastic lesion in the medial left ilium seen on image #187 is more apparent than previously. This measures approximately 3.5 cm. Abnormal tracer deposition within this lesion has resolved from previous, and there is now a photopenic defect at this site as compared to the rest of the skeletal structures. There is increasing sclerosis of a 2.4 cm lesion in the body of T3, as well as lesions within the right posterior eighth rib, body of C2, the body of T12, and the left lamina of T4. These lesions also appear photopenic on today's examination. No new destructive bony lesions are seen. Unenhanced CT images: Visualized brain parenchyma at the skull base is normal in appearance noting age-related involutional change. The orbital contents are normal as visualized. There are bilateral ocular lens implants. The visualized paranasal sinuses and the mastoid air cells are clear. The salivary and thyroid glands are normal as imaged. No cervical lymphadenopathy is identified. There is mild atherosclerotic calcification of the thoracic aorta. There is mild ectasia of the ascending thoracic aorta which measures up to 4.1 cm in diameter. The remainder of the thoracic aorta is normal in caliber. There is no axillary lymphadenopathy. The heart is normal in size and without pericardial effusion. The coronary arteries are densely calcified. The pulmonary trunk is normal in caliber. Advanced emphysema is observed. There is significant dependent atelectasis. See above under PET findings for additional assessment of pulmonary abnormalities. The unenhanced liver is normal in size and attenuation. See above under PET findings for assessment of hepatic lesions. The unenhanced spleen, pancreas, adrenal glands are grossly unremarkable. Calcified gallstones are noted. The kidneys demonstrate cortical atrophy and are without hydronephrosis. A 5.5 cm cyst is noted in the lower pole of the right kidney. There is moderate to advanced atherosclerotic calcification of the abdominal aorta which is normal in caliber. No bowel obstruction is identified. A normal appendix is seen. There is moderate colonic fecal retention. There is mild diverticulosis of left colon without CT evidence of acute diverticulitis. No intraperitoneal free air or abdominal ascites is seen. There is no abdominal, pelvic, or retroperitoneal lymphadenopathy. The prostate gland is mildly enlarged. The bladder is normal as imaged. The skeletal structures are osteopenic. Degenerative change is seen throughout the spine. Arthritic changes also seen in the shoulders. IMPRESSION: 1. Overall positive response to treatment. 2. The left upper lobe pulmonary lesion and left hilar adenopathy have significantly decreased in size and FDG activity when compared to 12/14/2016. There is mild persistent FDG activity within these lesions. 3. Two small low-attenuation hepatic lesions have significantly decreased in size and are no longer FDG avid from previous. 4. There is increasing sclerosis of bony metastatic lesions when compared to 12/14/2016. These lesions appear photopenic on today's examination. No new bone lesions are identified. 5. The lesion in the left neck above the thyroid gland has resolved. 6. Advanced emphysema. 7. There is groundglass change identified in the right middle lobe and at the lung bases. This could represent atelectasis and/or an infectious/inflammatory pneumonitis. There is only low-level FDG activity within these regions and clinical correlation will be required. 8. Cholelithiasis. 9. There is diffuse skeletal uptake, likely related to colony-stimulating factors. 10. Additional findings as above. Electronically signed by: Marcos Lainez M.D. 03/20/2017 11:48 AM Dictated Date/Time: 03/20/2017 11:22 AM The status of this report is Signed. Draft = Not yet reviewed or approved by Radiologist. Patient: JAYNA RODRIGUEZ Address1: [address] [facility] Rec: [id number] Address2: Acct ID: [id number] [facility] Zip: [id number] Date: 1930 Sex: M Room/Bed: Ref Phy: Declan León MD SC: C.MRI Att Phy: Cuco León M.D. Report #: [id number] Rosario Phy: Mian Cisse M.D. (MEDICAL) Test: BRC Admit Phy: Lan Analyst: LEOLA Interpreting Phy: Antonio Pak M.D. Diagnosis: LUNG CA,MRI SHOWING FRONTAL BRAIN LESION Ordering Phy: Cuco León M.D. Service Date: 04/04/17 Admit Date: 04/04/17 MNE: PWRSCRIBE CONF: DICTATED BY: Antonio Pak M.D.]] CC: Mian Cisse M.D. (MEDICAL) Cuco León M.D. Patel, Viral ., MD Endcc: [~ rep ct add3]] BRAIN COMBO CLINICAL HISTORY: LUNG CA,MRI SHOWING FRONTAL BRAIN LESION COMPARISON STUDY: 12/15/2016 TECHNIQUE: Utilizing a 1.5 Renita magnet and dedicated coil, multiplanar, multiecho imaging of the brain was performed pre and postcontrast administration. IV administration of 8.5 mL of Gadavist contrast was uneventful. FINDINGS: The small focus of enhancement left frontal lobe on the prior study is not seen currently. There is no evidence for pathologic postcontrast enhancement. Signal characteristics the cerebellar as well as cerebral hemispheres continue to show components of chronic small vessel change throughout both cerebral hemispheres. There is no evidence for an acute ischemic focus. Mild cerebral atrophy is present. IMPRESSION: 1. No evidence for abnormal postcontrast enhancement. 2. Small focus of increased signal left frontal lobe on the prior study is not identified currently and appears to have been artifactual. 3. Stable findings of chronic small vessel change. 4. No acute process The above report was generated using voice recognition software. It may contain grammatical, syntax or spelling errors. Electronically signed by: Antonio Pak M.D. 04/04/2017 3:37 PM Dictated Date/Time: 04/04/2017 3:33 PM Signed = Reviewed and approved by Radiologist (Jenise Beltrán PA-C) Assessment & Plan Plan: Patient also seen today by Dr. León. PET/CT and MRI were reviewed. He continues follow-up with Dr. León in medical oncology. He is receiving chemotherapy every 3 weeks. We asked patient to return to our office in 2 months. We will consider radiation therapy to the chest as well as prophylactic cranial irradiation. This is pending his continued good response to treatment. He may call our office if he has any questions or concerns in the interim. (Jenise Beltrán PA-C) I agree with note created by Jenise Beltrán PA-C. I reviewed the patient's chart and information with her. I have examined and evaluated the patient. I reviewed relevant clinical information and answered the patient's and/or family' s questions. We would like to see the patient back in several months for follow up evaluation. We will defer re-staging scans to Dr. León. If the patient does have a good response to treatment, we have suggested consideration for consolidative thoracic radiation therapy and prophylactic cranial irradiation. The patient was agreeable to this recommendation and would like to follow up. (Veeral. León MD) Total Time In Follow-Up I spent 20 minutes the need to the patient and performing examination. I spent 15 minutes reviewing information in completing this note (Jenise Beltrán PA-C) I spent 15 minutes examining and counseling the patient. (Veeral. León MD) Copy To Mian Cisse M.D. (MEDICAL); Frank Avila M.D.; Cuco León M.D.
== END | disposition home or self-care (01) ==
LOC: C.ONC 13:14
PROVIDERS: ATTEND Physician Assistant Medical
DX: Z08 Encounter for follow-up examination after completed treatment for malignant neoplasm (principal); Z92.3 Personal history of irradiation; Z85.118 Personal history of other malignant neoplasm of bronchus and lung; Z85.830 Personal history of malignant neoplasm of bone

== ENCOUNTER 2017-04-22 20:56 | Emergency (ER) | payer OTHER ==
[~2017-04-22] VITALS: Ht 175.3 cm; Wt 75.2 kg
[~2017-04-22 20:56] MED LIST changes: -BG; -CEPH500C PO; -ENOX1INJ9 SQ; -PYRAZINAMIDE; -RIFA300C34 PO; -[UNRECOGNIZED DRUG - CODE]; -[UNRECOGNIZED DRUG - CODE]; -[UNRECOGNIZED DRUG - CODE] TD; -[UNRECOGNIZED DRUG - REMARK]; -vit d
[2017-04-22 22:37] VITALS: Ht 175.3 cm; Wt 75.2 kg
[2017-04-22 23:02] LABS: PROTHROMBIN TIME (PATIENT) 10.9 SECONDS (9.0-12.0)
[2017-04-22 23:06] LABS: BUN/CREATININE RATIO 15.4 (10-20); CREATININE 0.83 mg/dl (0.60-1.40); POTASSIUM 3.9 mmol/L (3.5-5.1)
[2017-04-22 23:09] LABS: ALB/GLOB RATIO 1.1 (0.9-2)
[2017-04-22 23:21] LABS: BASO % 0.2 %; BASO ABS # 0.02 K/uL (0-0.2); COMPLETE YES; EOS % 0.8 %; HEMATOCRIT 31.6 % (42-52); IG% 0.9 %; LYMPH ABS # 1.79 K/uL (1.2-3.4); MEAN CELL VOLUME 104.3 fL (80-100); MEAN CORPUSCULAR HEMOGLOBIN 33.3 pg (25-34); MEAN PLATELET VOLUME 10.1 fL (7.4-10.4); MONO % 8.2 %; NEUT % 68.9 %; PLATELET COUNT 55 K/uL (130-400); PLT ESTIMATE DECREASED; RED BLOOD COUNT 3.03 M/uL (4.7-6.1); TEAR DROP CELLS 1+; TOXIC GRANULATION 1+; WHITE BLOOD COUNT 8.51 K/uL (4.8-10.8)
[2017-04-22 23:39] VITALS: O2SAT 97
[2017-04-23] MEDS ORDERED: CEFTRIAXONE SOD INJ 1 GM ADDVIAL IV STA (00:16)
[2017-04-23] MEDS ORDERED: LOVENOX TEACHING KIT PRN (00:30)
[2017-04-23] MEDS ORDERED: ENOXAPARIN 40 MG/0.4 ML SYR SQ ONE ×2 (00:30)
[2017-04-23] MEDS ORDERED: CEPH500C PO (00:44)
[2017-04-23] MEDS ORDERED: ENOX1INJ9 SQ (00:44)
--- NOTE | 2017-04-23 00:51 | EMERGENCY ROOM VISIT NOTE ---
History Report prepared by Renu: Luna Herron Under the Supervision of: Dr. Marco Sommer M.D. First contact with patient: 21:04 Chief Complaint: SWELLING TO EXTREMITY Stated Complaint: RT ARM SWELLING History of Present Illness The patient is an 86 year old male who presents to the Emergency Room with complaints of persistent right arm swelling that began yesterday. He currently rates his discomfort as a 1/10 in severity. The patient states that he is currently undergoing chemotherapy for metastatic lung cancer. He states that the cancer has metastasized to his liver and spine. The patient states that he has been getting poked for IVs often. He states that yesterday he began noticing right arm swelling. The patient states that he is in slight discomfort. He additionally reports that he is typically hypotensive. Pt denies LOC, headache, lightheadedness, dizziness, fevers, chills, diaphoresis, visual changes, neck pain, chest pain, breathing difficulties, nausea, vomiting , abdominal pain, back pain, melena, hematochezia, urinary symptoms, numbness, weakness, lymphadenopathy, rash, or other complaints. Source of History: patient Onset: yesterday Position: arm (right) Symptom Intensity: 1/10 Quality: other (swelling) Timing: other (persistent) Review of Systems See HPI for pertinent positives and negatives. A total of ten systems were reviewed and were otherwise negative. Past Medical & Surgical Medical Problems: (1) CAD (coronary artery disease) (2) CKD (chronic kidney disease) stage 3, GFR 30-59 ml/min (3) Dyslipidemia (4) HTN (hypertension) (5) Metastatic primary lung cancer (6) Pulmonary mass (7) Retinal hemorrhage Surgical Problems: (1) H/O heart artery stent Family History Cancer Social History Smoking Status: Never Smoker Drug Use: none Marital Status: Housing Status: lives with significant other Occupation Status: retired Current/Historical Medications Scheduled Allopurinol (Allopurinol), 300 MG PO DAILY Aspirin (Aspirin), 162 MG PO DAILY Calcium Carbonate (Calcium), 2 TAB PO DAILY Cephalexin Monohydrate (Keflex), 500 MG PO QID Cholecalciferol (Vitamin D3), 1 TAB PO DAILY Coenzyme Q10 (Ubidecarenone) (Coq-10), 30 MG PO DAILY Docusate Sodium (Colace), 1 CAP PO BID Echinacea (Echinacea), 800 MG PO DAILY Enoxaparin Sodium (Lovenox), 40 MG SQ DAILY Fentanyl (Duragesic), 12 MCG TD [id number] Hydrocortisone 2.5% (Rectal) (Anusol-Hc 2.5%), 1 APPLN TOP BID Metoprolol Succ (Toprol Xl) (Toprol-Xl), 12.5 MG PO BID Misc Natural Products (Lutein Vision Blend), 2 CAP PO DAILY Polyethylene Glycol 3350 (Miralax), 17 GM PO DAILY Simvastatin (Zocor), 20 MG PO HS Sucralfate (Carafate), 1 GM PO BID Tamsulosin Hcl (Flomax), 1 CAP PO DAILY Scheduled PRN Acetaminophen (Tylenol), 1,000 MG PO Q8 PRN for Pain Ondansetron (Ondansetron HCl), 1 TAB PO Q8 PRN for Nausea or Vomiting Prochlorperazine Maleate (Compazine), 1 TAB PO Q6 PRN for Nausea or Vomiting Tramadol (Ultram), 50 MG PO Q6H PRN for Pain Allergies Coded Allergies: No Known Allergies (Verified , 04/22/17) Physical Exam Vital Signs Date Time Temp Pulse Resp B/P (MAP) Pulse Ox O2 Delivery O2 Flow Rate FiO2 04/22/17 23:39 97 Room Air 04/22/17 23:36 79 16 113/64 97 Room Air 04/22/17 22:06 79 16 110/70 97 Room Air 04/22/17 20:59 36.5 89 18 99/73 98 Room Air Physical Exam GENERAL: Awake, alert, well-appearing, in no distress HENT: Normocephalic, atraumatic. Oropharynx unremarkable. EYES: Normal conjunctiva. Sclera non-icteric. NECK: Supple. No nuchal rigidity. FROM. No JVD. RESPIRATORY: Clear to auscultation. CARDIAC: Regular rate, normal rhythm. Extremities warm and well perfused. Pulses equal. ABDOMEN: Soft, non-distended. No tenderness to palpation. No rebound or guarding. No masses. RECTAL: Deferred. MUSCULOSKELETAL: Induration and swelling with redness, warmth, and tenderness at the right antecubital fossa on the radial aspect. Chest examination reveals no tenderness. The back is symmetrical on inspection without obvious abnormality. There is no CVA tenderness to palpation. LOWER EXTREMITIES: Calves are equal size bilaterally and non-tender. No edema. No discoloration. NEURO: Normal sensorium. No sensory or motor deficits noted. SKIN: No rash or jaundice noted. Medical Decision & Procedures ER Provider Diagnostic Interpretation: US: Radiology results as stated below per my review and radiologist interpretation US Venous right upper extremity: Impression: No evidence of deep venous thrombus in the right upper extremity. There does appear to be thrombus, presumably within superficial vein in the proximal to mid forearm in region of interest. Radiologist: Chu Orellana MD Study ready at 0007 and initial results transmitted at 0012. Laboratory Results 04/22/17 22:30 Red Blood Count 3.03, Mean Corpuscular Volume 104.3, Mean Corpuscular Hemoglobin 33.3, Mean Corpuscular Hemoglobin Concent 32.0, Mean Platelet Volume 10.1, Neutrophils (%) (Auto) 68.9, Lymphocytes (%) (Auto) 21.0, Monocytes (%) ( Auto) 8.2, Eosinophils (%) (Auto) 0.8, Basophils (%) (Auto) 0.2, Neutrophils # ( Auto) 5.85, Lymphocytes # (Auto) 1.79, Monocytes # (Auto) 0.70, Eosinophils # ( Auto) 0.07, Basophils # (Auto) 0.02 04/22/17 22:30 Test 04/22/17 22:30 White Blood Count 8.51 K/uL (4.8-10.8) Red Blood Count 3.03 M/uL (4.7-6.1) Hemoglobin 10.1 g/dL (14.0-18.0) Hematocrit 31.6 % (42-52) Mean Corpuscular Volume 104.3 fL (80-100) Mean Corpuscular Hemoglobin 33.3 pg (25-34) Mean Corpuscular Hemoglobin Concent 32.0 g/dl (32-36) Platelet Count 55 K/uL (130-400) Mean Platelet Volume 10.1 fL (7.4-10.4) Neutrophils (%) (Auto) 68.9 % Lymphocytes (%) (Auto) 21.0 % Monocytes (%) (Auto) 8.2 % Eosinophils (%) (Auto) 0.8 % Basophils (%) (Auto) 0.2 % Neutrophils # (Auto) 5.85 K/uL (1.4-6.5) Lymphocytes # (Auto) 1.79 K/uL (1.2-3.4) Monocytes # (Auto) 0.70 K/uL (0.11-0.59) Eosinophils # (Auto) 0.07 K/uL (0-0.5) Basophils # (Auto) 0.02 K/uL (0-0.2) RDW Standard Deviation 69.5 fL (36.4-46.3) RDW Coefficient of Variation 18.7 % (11.5-14.5) Immature Granulocyte % (Auto) 0.9 % Immature Granulocyte # (Auto) 0.08 K/uL (0.00-0.02) Toxic Granulation 1+ Platelet Estimate DECREASED Tear Drop Cells 1+ Prothrombin Time 10.9 SECONDS (9.0-12.0) Prothromb Time International Ratio 1.0 (0.9-1.1) Activated Partial Thromboplast Time 25.7 SECONDS (21.0-31.0) Partial Thromboplastin Ratio 1.0 Anion Gap 4.0 mmol/L (3-11) Est Creatinine Clear Calc Drug Dose 63.9 ml/min Estimated GFR () 92.3 Estimated GFR (Non- 79.7 BUN/Creatinine Ratio 15.4 (10-20) Calcium Level 9.0 mg/dl (8.5-10.1) Total Bilirubin 0.3 mg/dl (0.2-1) Aspartate Amino Transf (AST/SGOT) 16 U/L (15-37) Alanine Aminotransferase (ALT/SGPT) 22 U/L (12-78) Alkaline Phosphatase 136 U/L (45-117) Total Protein 7.0 gm/dl (6.4-8.2) Albumin 3.6 gm/dl (3.4-5.0) Globulin 3.4 gm/dl (2.5-4.0) Albumin/Globulin Ratio 1.1 (0.9-2) Laboratory results reviewed by me Medications Administered Medications (Trade) Dose Ordered Sig/Letty Route Start Time Stop Time Status Last Admin Dose Admin Enoxaparin Sodium (Lovenox Inj) 40 mg NOW ONCE SQ 04/23/17 00:30 04/23/17 00:31 DC 04/23/17 00:35 40 MG Miscellaneous (Lovenox Teaching Kit) 1 ea PRN PRN N/A 04/23/17 00:30 05/23/17 00:29 04/23/17 00:36 1 EA Ceftriaxone Sodium (Rocephin Inj) 1 gm NOW STAT IV 04/23/17 00:16 04/23/17 00:19 DC 04/23/17 00:34 1 GM ED Course 2114: The patient was evaluated in room C7. A complete history and physical exam was performed. 2325: I reevaluated the patient and he is resting comfortably. 2332: I discussed the patients case [facility]. She recommends Lovanox. 0007: I reevaluated the patient and he is resting comfortably. I updated the patient and his family on the treatment plan and exam findings. They verbalized complete understanding and agreement. He will be ready to go home shortly. 0016: Ordered Rocephin Inj 1 gm IV. 0030: Ordered Lovenox Inj 40 mg SQ, Lovenox Inj 40 mg SQ. Medical Decision Prior records reviewed and summarized above. Triage Nursing notes reviewed and agree them. Additional history obtained from the family. The patient's history was concerning for swelling and pain in the arm Differential diagnosis: Etiologies such as SVT, cellulitis, DVT, joint effusion, infection, trauma, muscular, lymphedema, idiopathic, as well as others were entertained.. Physical examination: As above. Isolated to the proximal right forearm. ER treatment provided: Lovenox 40 mg IV Rocephin 1 g On reassessment the patient felt better. Diagnostics interpreted by me: The labs revealed an unremarkable CBC and chemistry panel. Coags negative. Imaging studies: Ultrasound as above. Consultation: A consultation was placed with hematology, Dr. Padilla. The case was discussed and diagnostics were reviewed. She recommended treatment with Lovenox 40 mg daily for 45 days. The patient has a superficial phlebitis that is greater than 5 cm in the right arm. This is an area of an IV. The patient will be treated with Lovenox. There was moderate warmth and erythema that seemed to be spreading medially up the forearm. This raises some concerns for possible cellulitis. The patient was given Rocephin and will be treated with Keflex. He'll follow-up closely in the office on Monday. If he has any problems he will come back to the Emergency Room for reevaluation. Medication Reconcilliation Current Medication List: was personally reviewed by me Impression Primary Impression: Superficial phlebitis of arm Additional Impression: Cellulitis Scribe Attestation The scribe's documentation has been prepared under my direction and personally reviewed by me in its entirety. I confirm that the note above accurately reflects all work, treatment, procedures, and medical decision making performed by me. Departure Information Dispostion Home / Self-Care Prescriptions Cephalexin Monohydrate (Keflex) 500 Mg Cap 500 MG PO QID, #36 CAP Prov: Marco Sommer MD 04/23/17 Enoxaparin Sodium (LOVENOX) 40 Mg/0.4 Ml Inj 40 MG SQ DAILY for 43 Days, #43 SYR Prov: Marco Sommer MD 04/23/17 Referrals Mian Cisse M.D. (MEDICAL) (PCP) Patient Instructions My [facility] Additional Instructions Lovenox 40 mg subcutaneous injections daily for a total of 45 days. First dose given in the Emergency Room. Cephalexin(Keflex) 500mg: Take one pill four times daily until finished for your arm infection. All antibiotics can cause diarrhea. If this occurs and you feel worse or it does not resolve in 1-2 days follow up with your doctor or return to the Emergency Department as this could be signs of serious underlying problems. Any medication can cause an allergic reaction, stop the pills immediately and return to the ER for rash, hives, breathing difficulties, or swelling. Tylenol: Take 1000 mg every 6 hours as needed for pain. Do not take more than 3000 mg in a 24 hour period. Continue other current medications. Warm compresses for 20 minutes at a time four times daily for 2-3 days. Follow-up with your primary clinic on Monday as a recheck will be necessary. Outpatient monitoring will be necessary of this arm problem. Return to the ER immediately for spreading redness, fevers, pus-like drainage, severe pain, chest pain, breathing difficulty, severe headache, bleeding problems, or as needed. Problem Qualifiers
[2017-04-23 01:06] VITALS: BP 105/73; PULSE 84; TEMP 36.5; O2SAT 97
--- NOTE | 2017-04-23 06:54 | DIAGNOSTIC IMAGING REPORT ---
RIGHT UPPER EXTREMITY VENOUS DOPPLER HISTORY: Right arm swelling Right COMPARISON STUDY: None. FINDINGS: The right internal jugular vein is patent. There is normal flow within the right subclavian vein. There is normal flow and compressibility within the right axillary, basilic, brachial, radial, ulnar, and visualized cephalic veins. Nonocclusive thrombus seen within a superficial vein within the proximal to mid forearm. IMPRESSION: No DVT within the right upper extremity. Nonocclusive thrombus seen within a superficial vein within the proximal to mid forearm. Electronically signed by: Ulisses Coughlin M.D. 04/23/2017 6:53 AM Dictated Date/Time: 04/23/2017 6:52 AM
== END 2017-04-23 01:08 | disposition home or self-care (01) ==
LOC: C.EDB 20:56 → C.EDC 04-23 01:08
DX: I80.8 Phlebitis and thrombophlebitis of other sites (principal); L03.113 Cellulitis of right upper limb; C34.90 Malignant neoplasm of unspecified part of unspecified bronchus or lung; C78.7 Secondary malignant neoplasm of liver and intrahepatic bile duct; C79.51 Secondary malignant neoplasm of bone; I25.10 Atherosclerotic heart disease of native coronary artery without angina pectoris; I12.9 Hypertensive chronic kidney disease with stage 1 through stage 4 chronic kidney disease, or unspecified chronic kidney disease; N18.3 Chronic kidney disease, stage 3 (moderate); E78.5 Hyperlipidemia, unspecified; Z95.5 Presence of coronary angioplasty implant and graft; Z79.82 Long term (current) use of aspirin

== ENCOUNTER → 2017-07-10 | Outpatient (CLI) | payer OTHER ==
[~2017-07-10] MED LIST changes: +CEPH500C PO
--- NOTE | 2017-07-10 14:25 | DIAGNOSTIC IMAGING REPORT ---
PET/CT SKULL-THIGH HISTORY: Lung carcinoma MALIGNANT NEOPLASM TECHNIQUE: PET/CT was performed from the base of the skull through the pelvis following the intravenous administration of 14.8 mCi of F18-FDG. Non-contrast CT imaging was performed over the same range without breath-hold for attenuation correction of PET images and anatomic correlation, but not for primary interpretation as it is not of standard diagnostic quality. CT DOSE: COMPARISON: 03/20/2017 FINDINGS: HEAD AND NECK: There is no FDG-avid disease or significant lymphadenopathy in the imaged portions of the head and the neck. CHEST: Partial decrease in size of a left upper lobe nodule currently having a maximum dimension of 1.7 cm compared to the prior study of 2.1 cm. Minimal residual FDG activity. Persistent bilateral hilar ruby change unaltered from the prior exam. SUV characteristics at maximum the left are 4.8. Metabolic rebound phenomenon of the osseous structures appears somewhat diminished. Bibasilar parenchymal infiltrative change combined with basilar fibrotic changes stable. Metastatic foci within the liver demonstrate an increase in metabolic activity. Lesion anterior left hepatic lobe has a current SUV of 6 with the lesion peripheral aspect right hepatic lobe having SUV of 4.3. ABDOMEN/PELVIS: Interval decrease in metabolic activity characteristics of the osseous structures. Unremarkable activity characteristics of the bowel. Unremarkable bladder activity. Inguinal regions are unremarkable. MUSCULOSKELETAL: Diminished metabolic rebound phenomenon compared to the prior study. No distinct evidence for progressive metastatic disease. IMPRESSION: 1. Mixed findings. 2. Unchanging bilateral hilar ruby pathology. 3. Continued improvement in size of a left upper lobe nodular process 4. Increase in metabolic activity of 2 metastatic deposits of the liver. 5. Stable pulmonary fibrotic change with unchanging sclerotic metastatic foci of the osseous structures. The above report was generated using voice recognition software. It may contain grammatical, syntax or spelling errors. Electronically signed by: Antonio Pak M.D. 07/10/2017 2:24 PM Dictated Date/Time: 07/10/2017 2:09 PM
== END | disposition home or self-care (01) ==
LOC: C.PET 09:27
PROVIDERS: ATTEND Internal Medicine Hematology
DX: C79.51 Secondary malignant neoplasm of bone (principal); C80.1 Malignant (primary) neoplasm, unspecified; C78.7 Secondary malignant neoplasm of liver and intrahepatic bile duct

== ENCOUNTER → 2017-10-09 | Outpatient (CLI) | payer OTHER ==
[~2017-10-09] MED LIST changes: -CEPH500C PO; -FENT25DI10 TD; -HYDR2.5C37 TOP
--- NOTE | 2017-10-09 11:47 | DIAGNOSTIC IMAGING REPORT ---
PET/CT CLINICAL HISTORY: Non-small cell lung cancer. COMPARISON STUDY: PET/CT dated 07/10/2017. CT scan of the chest, abdomen, and pelvis dated 11/13/2016.. TECHNIQUE: One hour following the IV administration of 14.5 mCi of F-18 FDG, PET/CT examination was performed from the orbital meatal line through the bony pelvis. Noncontrast CT is performed for the purposes of anatomic correlation and attenuation correction. Note that this does not reflect a diagnostic CT examination. Images were reviewed on a separate [employer] independent workstation. Fused images were obtained. Standard uptake values reported are maximum values within the region of interest expressed in gm/mL. FINDINGS: PET FINDINGS: Head and neck: There is expected physiologic activity within the visualized brain parenchyma at the skull base and the salivary glands. A lesion previous identified about the left lobe of the thyroid gland has resolved. Thorax: Evaluation of the thorax demonstrates expected physiologic myocardial activity. The left upper lobe lesion seen on image #96 has modestly increased in size from previous, now measuring 2.6 cm (previously measured 1.8 cm). There is FDG activity in this lesion with a maximum SUV of 2.3. FDG avid left hilar adenopathy persists. This is difficult to measure on the CT images but demonstrates a maximum SUV of 7.1. The largest node measures at least 2.6 cm. No FDG avid mediastinal nodes are clearly identified. Abdomen and pelvis: There is expected activity within the liver, spleen, kidneys, renal collecting system, and bladder. Low-level bowel activity is likely within physical limits. At least 3 large low-attenuation hepatic lesions are again noted. The largest is in the left lobe and measures 3.3 cm. These lesions are markedly FDG avid demonstrated a maximum SUV of 13.0. These have increased in size from 07/10/2017. Skeletal structures: There is a large sclerotic lesion identified in the body of T3 seen on image #60. A sclerotic lesion is also seen within the left lamina of T4 and the spinous process of T2. Lesions are also seen within the right posterior eighth rib, an the body of C2. A mixed osteolytic and blastic lesion in the medial left ilium is again seen on image #184. No definite abnormal tracer deposition is seen within these lesions. Unenhanced CT images: Visualized brain parenchyma at the skull base is normal in appearance noting age-related involutional change. The orbital contents are normal as visualized noting bilateral ocular lens implants. The visualized paranasal sinuses and the mastoid air cells are clear. The salivary and thyroid glands are normal as imaged. No cervical lymphadenopathy is identified. There is mild atherosclerotic calcification of the thoracic aorta. There is mild ectasia of the ascending thoracic aorta which measures up to 4.1 cm in diameter. The remainder of the thoracic aorta is normal in caliber. There is no axillary lymphadenopathy. The heart is normal in size and without pericardial effusion. The coronary arteries are densely calcified. The pulmonary trunk is normal in caliber. Advanced emphysema is observed. There is significant dependent atelectasis. See above under PET findings for additional assessment of pulmonary abnormalities. The unenhanced liver is normal in size and attenuation. See above under PET findings for assessment of hepatic lesions. The unenhanced spleen, pancreas, and adrenal glands are grossly unremarkable. Calcified gallstones are noted. The kidneys demonstrate cortical atrophy and are without hydronephrosis. A 5.5 cm cyst is noted in the lower pole of the right kidney. There is moderate to advanced atherosclerotic calcification of the abdominal aorta which is normal in caliber. No bowel obstruction is identified. A normal appendix is seen. There is moderate colonic fecal retention. There is mild colonic diverticulosis without CT evidence of acute diverticulitis. No intraperitoneal free air or abdominal ascites is seen. There is no abdominal, pelvic, or retroperitoneal lymphadenopathy. The prostate gland is mildly enlarged. The bladder is normal as imaged. The skeletal structures are osteopenic. Degenerative change is seen throughout the spine. Arthritic changes also seen in the shoulders. IMPRESSION: 1. Overall progression of disease with enlarging and increasingly FDG avid hepatic metastatic lesions and slight increase in size of a left upper lobe pulmonary lesion. 2. FDG avid left hilar adenopathy persists. 3. No significant change in multiple osseous lesions as above. These were not demonstrably FDG avid on today's examination. 4. Advanced emphysema. 5. Cholelithiasis. 6. Additional findings as above. Electronically signed by: Marcos Lainez M.D. 10/09/2017 11:45 AM Dictated Date/Time: 10/09/2017 11:25 AM
== END | disposition home or self-care (01) ==
LOC: C.PET 09:08
PROVIDERS: ATTEND Physician Assistant
DX: C34.92 Malignant neoplasm of unspecified part of left bronchus or lung (principal); C78.7 Secondary malignant neoplasm of liver and intrahepatic bile duct; J43.9 Emphysema, unspecified; K80.20 Calculus of gallbladder without cholecystitis without obstruction

== ENCOUNTER → 2018-01-11 | Outpatient (CLI) | payer OTHER ==
[2018-01-11 13:43] VITALS: BP 94/63; PULSE 64; TEMP 36.5; O2SAT 97
--- NOTE | 2018-01-11 16:24 | Radiation Oncology Follow-Up ---
Radiation Oncology Follow-Up Date of Visit Jan 11, 2018. 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 Rodriguez is gentleman with a remote smoking history who recently presented with upper cervical neck pain and some weight loss. The patient presented to the emergency room on [address] of the head which was negative. The patient did have a CT of the cervical spine which did reveal: "1. A 2.3 x 2.1 cm destructive mass within the left anterior base of the C2 vertebral body as described above. This results in a mild inferior endplate compression fracture at C2. No associated retropulsion. This is highly suspicious for a metastatic lesion. 2. There is a second 1.5 cm destructive mass centered within the left thyroid cartilage. No airway compromise." The patient subsequently did have a CT of the chest/abdomen/pelvis which revealed: "IMPRESSION: 1. 2.8 x 2.4 cm irregular lingular nodule highly suggestive of bronchogenic adenocarcinoma. 2. Multiple pathologically enlarged left hilar lymph nodes suggestive of ruby spread of disease. Associated occlusion of the lingular bronchus, severe narrowing of the left upper lobe bronchus and narrowing of several pulmonary arteries. 3. Two hepatic lesions highly suggestive of metastatic disease. 4. Suspected scattered lytic lesions within the ribs which suggest metastatic disease. 5. Multifocal groundglass opacities within the right lung which favor an infectious process" and "1. Two hepatic lesions suggestive of metastasis." The patient was seen by Dr. Silva from orthopedic surgery who did offer to potentially pursue a biopsy over the patient initially refused. We were asked to evaluate the patient for consideration of palliative radiation therapy to the cervical spine. Currently, the patient states that he does have significant pain in his cervical spine. He denies any focal neurologic deficits or numbness/tingling. He denies any hemoptysis, fevers, chills or night sweats. He does have some weight loss measures at least 10-15 pounds loss over the last several weeks. His appetite is poor as well. He underwent a bronchoscopy and biopsy 11/28/2016. This revealed malignant cells consistent with small cell carcinoma. Case [id number]. Decision was made to give palliative radiation therapy to the cervical spine. This was completed 12/13/2016. He received 3000 cGy Interim History He has not had any recurrence of pain of the cervical spine. He has no difficulties with swallowing. No problems with range of motion of the neck. He is continued follow-up with medical oncology. He had a recheck PET scan October 09, 2017. This did show progression of the disease. His chemotherapy has been changed. He is receiving treatments on a weekly basis. He stated the medication does cause alternating constipation and diarrhea. His appetite is fair he has had approximate 5 pound weight loss over the past 6 months. Allergies Coded Allergies: No Known Allergies (Verified , 04/22/17) Home Medications Scheduled Aspirin (Aspirin), 162 MG PO DAILY Calcium Carbonate (Calcium), 2 TAB PO DAILY Cholecalciferol (Vitamin D3), 1 TAB PO DAILY Coenzyme Q10 (Ubidecarenone) (Coq-10), 30 MG PO DAILY Docusate Sodium (Colace), 1 CAP PO BID Metoprolol Succ (Toprol Xl) (Toprol-Xl), 12.5 MG PO BID Misc Natural Products (Lutein Vision Blend), 2 CAP PO DAILY Polyethylene Glycol 3350 (Miralax), 17 GM PO DAILY Simvastatin (Zocor), 20 MG PO HS Tamsulosin Hcl (Flomax), 1 CAP PO DAILY Scheduled PRN Acetaminophen (Tylenol), 1,000 MG PO Q8 PRN for Pain Ondansetron (Ondansetron HCl), 1 TAB PO Q8 PRN for Nausea or Vomiting Prochlorperazine Maleate (Compazine), 1 TAB PO Q6 PRN for Nausea or Vomiting Tramadol (Ultram), 50 MG PO Q6H PRN for Pain Review of Systems Gastrointestinal: Symptoms: Constipation, Diarrhea GI Comments: Related to chemo;manageable at home; Oral: Symptoms: No Problems, Scant Saliva/Dry Mouth Other Oral Symptoms: No dysphagia or sore throat;dry mouth not bothesome; Respiratory: Symptoms: WNL Urinary: Symptoms: WNL Skin: Symptoms: No Problems Physical Exam Vital Signs Date Time Temp Pulse Resp B/P (MAP) Pulse Ox O2 Delivery O2 Flow Rate FiO2 01/11/18 13:43 36.5 64 20 94/63 97 ECOG Performance Status: 1 General Appearance: no apparent distress Eyes: normal inspection, EOMI ENT: normal ENT inspection, hearing grossly normal, pharynx normal Neck: no adenopathy, thyroid normal Respiratory/Chest: lungs clear, no respiratory distress, no accessory muscle use Cardiovascular: regular rate, rhythm, no gallop, no murmur Extremities: no pedal edema Neurologic/Psychiatric: no motor/sensory deficits, alert, normal mood/affect Skin: warm/dry Pain Management Patient Reports Pain: No Initial Pain Intensity: 0.0 Pain Management Plan He currently denies pain. Laboratory Laboratory Results: not applicable Pathology Pathology Results: were reviewed, and pertinent findings noted in HPI Imaging Imaging Studies: were reviewed, and pertinent findings noted below Imaging Comments PET/CT CLINICAL HISTORY: Non-small cell lung cancer. COMPARISON STUDY: PET/CT dated 07/10/2017. CT scan of the chest, abdomen, and pelvis dated 11/13/2016.. TECHNIQUE: One hour following the IV administration of 14.5 mCi of F-18 FDG, PET/CT examination was performed from the orbital meatal line through the bony pelvis. Noncontrast CT is performed for the purposes of anatomic correlation and attenuation correction. Note that this does not reflect a diagnostic CT examination. Images were reviewed on a separate [email or web address] independent workstation. Fused images were obtained. Standard uptake values reported are maximum values within the region of interest expressed in gm/mL. FINDINGS: PET FINDINGS: Head and neck: There is expected physiologic activity within the visualized brain parenchyma at the skull base and the salivary glands. A lesion previous identified about the left lobe of the thyroid gland has resolved. Thorax: Evaluation of the thorax demonstrates expected physiologic myocardial activity. The left upper lobe lesion seen on image #96 has modestly increased in size from previous, now measuring 2.6 cm (previously measured 1.8 cm). There is FDG activity in this lesion with a maximum SUV of 2.3. FDG avid left hilar adenopathy persists. This is difficult to measure on the CT images but demonstrates a maximum SUV of 7.1. The largest node measures at least 2.6 cm. No FDG avid mediastinal nodes are clearly identified. Abdomen and pelvis: There is expected activity within the liver, spleen, kidneys, renal collecting system, and bladder. Low-level bowel activity is likely within physical limits. At least 3 large low-attenuation hepatic lesions are again noted. The largest is in the left lobe and measures 3.3 cm. These lesions are markedly FDG avid demonstrated a maximum SUV of 13.0. These have increased in size from 07/10/2017. Skeletal structures: There is a large sclerotic lesion identified in the body of T3 seen on image #60. A sclerotic lesion is also seen within the left lamina of T4 and the spinous process of T2. Lesions are also seen within the right posterior eighth rib, an the body of C2. A mixed osteolytic and blastic lesion in the medial left ilium is again seen on image #184. No definite abnormal tracer deposition is seen within these lesions. Unenhanced CT images: Visualized brain parenchyma at the skull base is normal in appearance noting age-related involutional change. The orbital contents are normal as visualized noting bilateral ocular lens implants. The visualized paranasal sinuses and the mastoid air cells are clear. The salivary and thyroid glands are normal as imaged. No cervical lymphadenopathy is identified. There is mild atherosclerotic calcification of the thoracic aorta. There is mild ectasia of the ascending thoracic aorta which measures up to 4.1 cm in diameter. The remainder of the thoracic aorta is normal in caliber. There is no axillary lymphadenopathy. The heart is normal in size and without pericardial effusion. The coronary arteries are densely calcified. The pulmonary trunk is normal in caliber. Advanced emphysema is observed. There is significant dependent atelectasis. See above under PET findings for additional assessment of pulmonary abnormalities. The unenhanced liver is normal in size and attenuation. See above under PET findings for assessment of hepatic lesions. The unenhanced spleen, pancreas, and adrenal glands are grossly unremarkable. Calcified gallstones are noted. The kidneys demonstrate cortical atrophy and are without hydronephrosis. A 5.5 cm cyst is noted in the lower pole of the right kidney. There is moderate to advanced atherosclerotic calcification of the abdominal aorta which is normal in caliber. No bowel obstruction is identified. A normal appendix is seen. There is moderate colonic fecal retention. There is mild colonic diverticulosis without CT evidence of acute diverticulitis. No intraperitoneal free air or abdominal ascites is seen. There is no abdominal, pelvic, or retroperitoneal lymphadenopathy. The prostate gland is mildly enlarged. The bladder is normal as imaged. The skeletal structures are osteopenic. Degenerative change is seen throughout the spine. Arthritic changes also seen in the shoulders. IMPRESSION: 1. Overall progression of disease with enlarging and increasingly FDG avid hepatic metastatic lesions and slight increase in size of a left upper lobe pulmonary lesion. 2. FDG avid left hilar adenopathy persists. 3. No significant change in multiple osseous lesions as above. These were not demonstrably FDG avid on today's examination. 4. Advanced emphysema. 5. Cholelithiasis. 6. Additional findings as above. Electronically signed by: Marcos Lainez M.D. 10/09/2017 11:45 AM Dictated Date/Time: 10/09/2017 11:25 AM Assessment & Plan Plan: He will continue follow-up with medical oncology. He continues on chemotherapy receiving this on a weekly basis. We discussed using Metamucil to help with his irregular bowel habits. He was also seen and examined today by Dr. León. A follow-up appointment with our office was not given. He may return or call if he has any questions or concerns would be happy to see him. Assessment & Plan (Attending) I agree with note created by Jenise Beltrán PA-C. I reviewed the patient's chart and information with her. I have examined and evaluated the patient. I reviewed relevant clinical information and answered the patient's and/or family' s questions. [facility] Total Time In Follow-Up I spent 20 minutes speaking to the patient in performing examination. I spent 15 minutes reviewing information and completing this note. [place] Total Time (Attending) In Follow-Up I spent 15 minutes examining and counseling the patient. [facility] Copy To Mian Cisse M.D. (MEDICAL); Frank Avila M.D.; Cuco León M.D.
== END | disposition home or self-care (01) ==
LOC: C.ONC 13:36
PROVIDERS: ATTEND Physician Assistant Medical
DX: Z08 Encounter for follow-up examination after completed treatment for malignant neoplasm (principal); Z92.3 Personal history of irradiation; Z85.118 Personal history of other malignant neoplasm of bronchus and lung; Z85.830 Personal history of malignant neoplasm of bone

== ENCOUNTER → 2018-02-07 | Outpatient (CLI) | payer OTHER ==
[~2018-02-07] MED LIST changes: -ALL100 PO; -ECHI400C11 PO; +PROC10TA PO; -PROC1TAB5 PO; -SUCR1TAB29 PO
--- NOTE | 2018-02-07 17:44 | DIAGNOSTIC IMAGING REPORT ---
PET/CT SKULL-THIGH CLINICAL HISTORY: 87 years-old Male presenting with LUNG CANCER, last chemotherapy treatment 02/01/2018, last radiation treatment 12/13/2016. TECHNIQUE: PET/CT was performed from the skull base through the proximal thighs following the intravenous administration of 12.138 mCi of F18-FDG. Blood glucose level 123 mg/dL. The injection was performed at 10:15 AM and imaging began at 11:[address] was performed for attenuation correction purposes and anatomic localization. COMPARISON: 10/09/2017. CT DOSE (mGy.cm): The estimated cumulative dose is 1156.30. FINDINGS: Head and neck: No FDG-avid mass in the visualized portion of the head or neck. No FDG avid or enlarged lymph nodes in the neck. Chest: Normal thyroid and thoracic inlet. The previously noted FDG avid left hilar lymph node has decreased in avidity (currently max SUV 4.43; previously max SUV 6.69). Evaluation of the karissa on anatomic imaging limited without intravenous contrast. Atherosclerosis of the aorta. Normal heart size. Coronary artery calcification. No pericardial or pleural effusion. Minimal dependent changes likely atelectasis. The site of prior left upper lobe nodule demonstrates stable to slightly decreased size with decreased FDG avidity (currently max SUV 2.33 in comparison to uninvolved parenchyma max SUV 0.42; previously max SUV 2.35). This irregular spiculated region measures 2.1 cm in diameter (series 2 image 97), previously 2.6 cm. No new FDG avid focal nodule or infiltrate. Mild emphysematous changes suggested. Airways patent. Abdomen and pelvis: Interval increase in size of the 3 hepatic lesions identified on the prior exam. The pattern of FDG avidity is now peripheral on the current exam with central photopenia. This is notably different than on the prior exam and likely implies central necrosis. Lesions measure as follows: 4.6 cm in segment 8 (currently max SUV 8.29; previously max SUV 8.75), 3.1 cm in segment 5 (currently max SUV 7.28; previously max SUV 8.54), and 6.7 cm in segment 2 (currently max SUV 7.96; previously max SUV 13.08). The remainder of the imaged abdomen and pelvis demonstrates expected distribution of radiotracer in the genitourinary and gastrointestinal tracts. Photopenic right cyst at the lower pole noted. Cholelithiasis. Mild ectasia of the infrarenal aorta, which demonstrates atherosclerosis and measures 2.8 cm in diameter. The prostate is enlarged. Limited diverticulosis of the proximal sigmoid colon. No FDG avid or enlarged lymph nodes. Musculoskeletal: Degenerative changes of the spine. Heterogeneously lucent lesion in the posterior aspect of the left ilium (series 2 image 27), unchanged from prior and photopenic. Previously noted sclerotic lesions in T2, T3, and T4 unchanged from prior. Additional lesions in C2 and the right eighth rib also unchanged. These are photopenic. IMPRESSION: 1. Follow-up PET/CT demonstrates interval increase in size of the 3 hepatic lesions though with stable to minimally decreased FDG avidity. No new sites of metastatic disease. 2. Decreased FDG avidity of the left hilar lymph node. 3. Slight decreased size with unchanged mild FDG avidity of the left upper lobe nodule. 4. Unchanged photopenic osseous lesions suggesting treated disease. No new osseous lesion. Electronically signed by: Chalo Ward M.D. 02/07/2018 5:42 PM Dictated Date/Time: 02/07/2018 1:20 PM
== END | disposition home or self-care (01) ==
LOC: C.PET 09:39
PROVIDERS: ATTEND Internal Medicine Hematology
DX: C34.90 Malignant neoplasm of unspecified part of unspecified bronchus or lung (principal); C78.7 Secondary malignant neoplasm of liver and intrahepatic bile duct; C79.51 Secondary malignant neoplasm of bone